=== PATIENT | male | born 1985 | race Caucasian/White ===

== ENCOUNTER 2016-09-20 20:45 | Inpatient (IN) | payer OTHER ==
[2016-09-20 21:35] VITALS: BMI 25.1
--- NOTE | 2016-09-20 21:35 | HP ---
CIWA Score - CIWA Score Nausea/Vomitin Muscle Tremors: 3 Anxiety: 3 Agitation: 3 Paroxysmal Sweats: 1-Minimal Palms Moist Orientation: 0-Oriented Tacttile Disturbances: 2-Mild Itch/Numbness/Burn Auditory Disturbances: 2-Mild Harshness/Frighten Visual Disturbances: 2-Mild Sensitivity Headache: 2-Mild CIWA-Ar Total Score: 21 Admission ROS BHS - HPI Chief Complaint: I NEED HELP TO STOP DRINKING ALCOHOL,XANAX Allergies/Adverse Reactions: Allergies Allergy/AdvReac Type Severity Reaction Status Date / Time No Known Allergies Allergy Verified 06/24/15 19:32 History of Present Illness: THIS 31 YEARS OLD MALE WITH ALCOHOL AND XANAX DEPENDENCE,WITHDRAWAL SYMPTOM, LAST DETOX TO 06/28/15 SYNCOPE ALCOHOL RELATED NICOTINE DEPENDENCE ANXIETY,DEPRESSION,INSOMNIA NO SIGNIFICANT PERIOD OF SOBRIETY DENIED HISTORY OF FALL Exam Limitations: No Limitations - Ebola screening Have you traveled outside of the country in the last 21 days: No (N) Have you had contact with anyone from an Ebola affected area: No Do you have a fever: No - Review of Systems Constitutional: Loss of Appetite, Malaise, Night Sweats, Changes in sleep, Weakness EENT: reports: Nose Congestion Respiratory: reports: No Symptoms reported Cardiac: reports: No Symptoms Reported GI: reports: Diarrhea, Nausea, Vomiting, Abdominal cramping : reports: No Symptoms Reported Musculoskeletal: reports: Muscle Pain Integumentary: reports: Dryness Neuro: reports: Tremors Endocrine: reports: No Symptoms Reported Hematology: reports: No Symptoms Reported Psychiatric: reports: Anxious, Depressed, other (INSOMNIA) Patient History - Patient Medical History Hx Anemia: No Hx Asthma: No Hx Chronic Obstructive Pulmonary Disease (COPD): No Hx Cancer: No Hx Cardiac Disorders: No Hx Congestive Heart Failure: No Hx Hypertension: Yes (ON MED) Hx Hypercholesterolemia: No Hx Pacemaker: No HX Cerebrovascular Accident: No Hx Seizures: No Hx Dementia: No Hx Diabetes: No Hx Gastrointestinal Disorders: No Hx Liver Disease: No Hx Genitourinary Disorders: No Hx Sexually Transmitted Disorders: No Hx Renal Disease (ESRD): No Hx Thyroid Disease: No Hx Human Immunodeficiency Virus (HIV): No (NEGATIVE 2016) Hx Hepatitis C: No Hx Depression: Yes (AND ANXIETY) Hx Suicide Attempt: No Hx Bipolar Disorder: No Hx Schizophrenia: No Other Medical History: NO SUICIDAL,NO HOMICIDAL - Patient Surgical History Past Surgical History: Yes Hx Neurologic Surgery: No Hx Cataract Extraction: No Hx Cardiac Surgery: No Hx Lung Surgery: No Hx Breast Surgery: No Hx Breast Biopsy: No Hx Abdominal Surgery: Yes (lN lower abdominal wall LIPOMA) Hx Appendectomy: No Hx Cholecystectomy: No Hx Genitourinary Surgery: No Hx Section: No Hx Orthopedic Surgery: No Hx Hysterectomy: No Other Surgical History: cyst removed last yr upper lip Anesthesia Reaction: No - PPD History Previous Implant?: Yes Documented Results: Negative w/o proof Date: 01/13/15 Results: 0 mm PPD to be Administered?: Yes - Smoking Cessation Smoking history: Current every day smoker Have you smoked in the past 12 months: Yes Aproximately how many cigarettes per day: 20 Cigars Per Day: 0 Hx Chewing Tobacco Use: No Initiated information on smoking cessation: Yes 'Breaking Loose' booklet given: 09/20/16 - Substance & Tx. History Hx Alcohol Use: Yes Hx Substance Use: Yes Substance Use Type: Alcohol, Tranquilizers Hx Substance Use Treatment: Yes ([facility] 06/24/15 TO 06/28/15) - Substances Abused Alcohol Route: Oral Frequency: 1-3 times last 30 days Amount used: 1PINT OF ODKA/3 OF 24 OZS OF BEER Age of first use: 14 Date of Last Use: 09/20/16 Benzodiazepine (Klonopin) Route: Oral Frequency: Daily Amount used: 4MGS Age of first use: 30 Date of Last Use: 09/20/16 Family Disease History - Family Disease History Family Disease History: Heart Disease: Father (HTN, CA. OF THE PROSTATE), Brother (HTN, ADDICTED TO DRUGS AND ETOH), CA: Father, Other: Grandparent ( alcohol,), Brother Admission Physical Exam BHS - Vital Signs Vital Signs: Vital Signs Temperature 96.9 F L 09/20/16 21:42 Pulse Rate 97 H 09/20/16 21:42 Respiratory Rate 20 09/20/16 21:42 Blood Pressure 152/88 09/20/16 21:42 O2 Sat by Pulse Oximetry (%) - Physical General Appearance: Yes: Intoxicated, Tremorous, Irritable, Sweating, Anxious HEENTM: Yes: Hearing grossly Normal, RADHIKA, Pharynx Normal Respiratory: Yes: Lungs Clear, No Respiratory Distress Neck: Yes: Supple, Trachea in good position Breast: Yes: Within Normal Limits Cardiology: Yes: Regular Rhythm, Regular Rate, S1, S2 Abdominal: Yes: Within Normal Limits, Normal Bowel Sounds, Non Tender, Soft Genitourinary: Yes: Within Normal Limits Back: Yes: Within Normal Limits, Normal Inspection Musculoskeletal: Yes: full range of Motion, Muscle Pain Extremities: Yes: Tremors 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, 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 Oriented, Alert, Motor Strength 5/5 Integumentary: Yes: Dry Lymphatic: Yes: Within Normal Limits - Diagnostic (1) Alcohol dependence with uncomplicated withdrawal Current Visit: No Status: Acute (2) Insomnia secondary to depression with anxiety Current Visit: No Status: Acute (3) Uncomplicated sedative, hypnotic or anxiolytic withdrawal Current Visit: Yes Status: Acute Cleared for Admission [facility] - Detox or Rehab [facility] Level of Care: Medically Managed Detox Regimen/Protocol: Librium S Breath Alcohol Content Breath Alcohol Content: 0.246 Vital Signs - Vital Signs Vital Signs Refused: No Temperature: 96.9 F Temperature Source: Oral Pulse Rate: 97 Respiratory Rate: 20 Blood Pressure: 152/88 BP Location: Left Arm - Height Height: 5 ft 9 in - Weight Weight: 170 lb Weight Measurement Method: Standing Scale Body Mass Index (BMI): 25.1 Urine Drug Screen - Test Device Lot Number: [id number] Expiration Date: 05/04/18 - Control Is Test Valid: Yes - Results Drug Screen Negative: No Urine Drug Screen Results: BZO-Benzodiazepines
[2016-09-20] MEDS ORDERED: MAGNESIUM CITRATE 300 ML BOTTLE PO PRN (21:52)
[2016-09-20] MEDS ORDERED: ACETAMINOPHEN 325 MG TABLET (FP) PO PRN (21:52)
[2016-09-20] MEDS ORDERED: chlordiazePOXIDE HCL 25 MG CAPSULE PO PRN (21:52)
[2016-09-20] MEDS ORDERED: guaiFENesin/D-METHORPHAN HB 10 ML UNIT-DOSE CUPS PO PRN (21:52)
[2016-09-20] MEDS ORDERED: hydrOXYzine PAMOATE 50 MG CAPSULE (FP) PO PRN (21:52)
[2016-09-20] MEDS ORDERED: MAGNESIUM HYDROX 2400MG/30ML ORAL SUSPENSION 30 ML CUP PO PRN (21:52)
[2016-09-20] MEDS ORDERED: LOPERAMIDE HCL 2 MG CAPSULE PO PRN (21:52)
[2016-09-20] MEDS ORDERED: P-EPHED 60MG/TRIPROLIDI 2.5MG TABLET PO PRN (21:52)
[2016-09-20] MEDS ORDERED: IBUPROFEN 400 MG TABLET (FP) PO PRN (21:52)
[2016-09-20] MEDS ORDERED: chlordiazePOXIDE HCL 25 MG CAPSULE PO ONE (21:52)
[2016-09-20] MEDS ORDERED: MENTHOL/PHENOL 1 EACH UD MM PRN (21:52)
[2016-09-20] MEDS ORDERED: MAG HYDROX/AL HYDROX/SIMETH 30 ML UNIT-DOSE CUP PO PRN (21:52)
[2016-09-20] MEDS ORDERED: THIAMINE HCL 100 MG TABLET (FP) PO SCH (22:00)
[2016-09-20] MEDS ORDERED: NICOTINE 21 MG/24 HOURS TOPICAL PATCH TD SCH (22:00)
[2016-09-20] MEDS ORDERED: LISINOPRIL 10 MG TABLET (FP) PO SCH (22:00)
[2016-09-20] MEDS ORDERED: chlordiazePOXIDE HCL 25 MG CAPSULE PO SCH (23:00)
[2016-09-20] MEDS: diphenhydrAMINE HCL 50 MG CAPSULE PO PRN (23:02)
[2016-09-20 23:19] VITALS: BP 152/80; PULSE 91; TEMP 98.1
[2016-09-21] MEDS: diphenhydrAMINE HCL 50 MG CAPSULE PO PRN (00:37)
--- NOTE | 2016-09-21 01:02 | PN ---
S Progress Note Note: called by nurse,patient did not want to complete treatment,signed release ama, did not want to wait
--- NOTE | 2016-09-21 01:08 | DS ---
[facility] Detox Discharge Summary Admission Date: 09/20/16 Discharge Date: 09/21/16 - History Present History: Alcohol Dependence, Sedative Dependence Additional Comments: patient did not want to complete treatment,signed release ama,did not want to wait Pertinent Past History: hypertension anxiety and depression nicotine dependence insomnia - Physical Exam Results Vital Signs: Vital Signs Temperature 98.1 F 09/20/16 23:18 Pulse Rate 91 H 09/20/16 23:18 Respiratory Rate 20 09/20/16 23:18 Blood Pressure 152/80 09/20/16 23:18 O2 Sat by Pulse Oximetry (%) Pertinent Admission Physical Exam Findings: withdrawal symptom - Medication Discharge Medications: Ambulatory Orders Quetiapine Fumarate [Seroquel -] 100 mg PO BID #60 tablet 05/06/15 Lisinopril [Prinivil] 10 mg PO DAILY #30 tablet 06/28/15 - Diagnosis (1) Alcohol dependence with uncomplicated withdrawal Current Visit: No Status: Acute (2) Insomnia secondary to depression with anxiety Current Visit: No Status: Acute (3) Uncomplicated sedative, hypnotic or anxiolytic withdrawal Current Visit: Yes Status: Acute (4) Nicotine dependence Current Visit: No Status: Chronic Qualifiers: Nicotine product type: cigarettes Substance use status: uncomplicated Qualified Code(s): F17.210 - Nicotine dependence, cigarettes, uncomplicated (5) Syncope Current Visit: No Status: Suspected (6) Essential hypertension Current Visit: Yes Status: Acute - AMA Did Patient Leave Against Medical Advice: Yes
[2016-09-21] MEDS ORDERED: PRENATAL VITAMINS W/ FOLIC ACID TABLET (FP) PO SCH (10:00)
--- NOTE | 2016-09-21 13:10 | EKG ---
Test Reason : Blood Pressure : / mmHG Vent. Rate : 081 BPM Atrial Rate : 081 BPM P-R Int : 182 ms QRS Dur : 086 ms QT Int : 372 ms P-R-T Axes : 071 055 056 degrees QTc Int : 432 ms NORMAL SINUS RHYTHM NORMAL ECG WHEN COMPARED WITH ECG OF 17-NOV-2013 23:58, NO SIGNIFICANT CHANGE WAS FOUND Confirmed by CAMMIE MCKEON MD ([id number]) on 09/21/2016 1:09:47 PM Referred By: Confirmed By:CAMMIE MCKEON MD
[2016-09-21] MEDS ORDERED: chlordiazePOXIDE HCL 25 MG CAPSULE PO SCH (23:00)
[2016-09-22] MEDS ORDERED: chlordiazePOXIDE 5 MG CAPSULE PO SCH (23:00)
[2016-09-23] MEDS ORDERED: chlordiazePOXIDE HCL 10 MG CAPSULE PO SCH (23:00)
== END 2016-09-21 01:09 | disposition left against medical advice (07) | DRG 894 ==
LOC: YASAS 20:45 → Y6N 21:27
PROVIDERS: ADMIT Internal Medicine Addiction Medicine; ATTEND Internal Medicine Addiction Medicine
PROC: HZ2ZZZZ Detoxification Services for Substance Abuse Treatment (ICD-10-PCS; principal; 2016-09-21)
DX: F13.230 Sedative, hypnotic or anxiolytic dependence with withdrawal, uncomplicated (principal); F10.230 Alcohol dependence with withdrawal, uncomplicated; F17.210 Nicotine dependence, cigarettes, uncomplicated; G47.00 Insomnia, unspecified; F41.8 Other specified anxiety disorders; I10 Essential (primary) hypertension; R55 Syncope and collapse
CPT/HCPCS: 93005; 93010

== ENCOUNTER 2018-06-26 17:53 | Inpatient (IN) | payer OTHER ==
[2018-06-26 19:13] VITALS: BMI 27.2
--- NOTE | 2018-06-26 21:04 | HP ---
"CIWA Score Nausea/Vomitin-Mild Nausea/No Vomiting Muscle Tremors: 3 Anxiety: 3 Agitation: 3 Paroxysmal Sweats: 2 Orientation: 2-Disoriented Date<2 days Tacttile Disturbances: 1-Very Mild Itch/Numbness Auditory Disturbances: 0-None Visual Disturbances: 0-None Headache: 0-None Present CIWA-Ar Total Score: 15 - Admission Criteria [facility] Guidelines: Admission for Medically Managed Detox: Requires at least one of the followin. CIWA greater than 12 2. Seizures within the past 24 hours 3. Delirium tremens within the past 24 hours 4. Hallucinations within the past 24 hours 5. Acute intervention needed for co occurring medical disorder 6. Acute intervention needed for co occurring psychiatric disorder 7. Severe withdrawal that cannot be handled at a lower level of care (continued vomiting, continued diarrhea, abnormal vital signs) requiring intravenous medication and/or fluids 8. Admission ROS [facility] Chief Complaint: Alcohol withdrawal symptoms Allergies/Adverse Reactions: Allergies Allergy/AdvReac Type Severity Reaction Status Date / Time No Known Allergies Allergy Verified 09/20/16 22:05 History of Present Illness: 33 years old male with a long history of alcohol dependence (since 14 years old ) is seeking admission to detox. Patient has been in previous detox at [facility] and reports insignificant period of sobriety. He reports that his last detox was here at [facility] 3 years ago. Patient has medical history of hypertension, depression, GERD and anxiety. He denies suicide attempt and suicidal ideation at this time. Patient urine was positive for Benzo but he denies use or prior treatment with Librium. Data Detail Level: Printer-Friendly View Confidential Drug Utilization Report Search Terms: vinny oliva, 1985 Search Date: 06/26/2018 08:57:15 PM The Drug Utilization Report below displays all of the controlled substance prescriptions, if any, that your patient has filled in the last twelve months. The information displayed on this report is compiled from pharmacy submissions to the Department, and accurately reflects the information as submitted by the pharmacies. This report was requested by: Krissy Hinton | Reference #: [id number] There are no results for the search terms that you entered. Exam Limitations: No Limitations - Ebola screening Have you traveled outside of the country in the last 21 days: No Have you had contact with anyone from an Ebola affected area: No Have you been sick,other than usual withdrawal symptoms: No Do you have a fever: No - Review of Systems Constitutional: Chills, Malaise, Night Sweats, Changes in sleep EENT: reports: No Symptoms Reported Respiratory: reports: No Symptoms reported Cardiac: reports: No Symptoms Reported GI: reports: Poor Appetite, Poor Fluid Intake, Abdominal cramping : reports: No Symptoms Reported Musculoskeletal: reports: Back Pain, Joint Pain, Muscle Pain Integumentary: reports: Dryness, Flushing Neuro: reports: Tremors Endocrine: reports: No Symptoms Reported Hematology: reports: No Symptoms Reported Psychiatric: reports: Mood/Affect Appropiate, Orientated x3 Other Systems: Reviewed and Negative Patient History - Patient Medical History Hx Anemia: No Hx Asthma: No Hx Chronic Obstructive Pulmonary Disease (COPD): No Hx Cancer: No Hx Cardiac Disorders: No Hx Congestive Heart Failure: No Hx Hypertension: Yes (Not on medication) Hx Hypercholesterolemia: No Hx Pacemaker: No HX Cerebrovascular Accident: No Hx Seizures: No Hx Dementia: No Hx Diabetes: No Hx Gastrointestinal Disorders: No Hx Liver Disease: No Hx Genitourinary Disorders: No Hx Sexually Transmitted Disorders: No Hx Renal Disease (ESRD): No Hx Thyroid Disease: No Hx Human Immunodeficiency Virus (HIV): No (NEGATIVE 2015) Hx Hepatitis C: No Hx Depression: Yes (Not on medication) Hx Suicide Attempt: No Hx Bipolar Disorder: No Hx Schizophrenia: No Other Medical History: Anxiety -Not on medication - Patient Surgical History Past Surgical History: Yes Hx Neurologic Surgery: No Hx Cataract Extraction: No Hx Cardiac Surgery: No Hx Lung Surgery: No Hx Breast Surgery: No Hx Breast Biopsy: No Hx Abdominal Surgery: Yes (lN lower abdominal wall LIPOMA) Hx Appendectomy: No Hx Cholecystectomy: No Hx Genitourinary Surgery: No Hx Section: No Hx Orthopedic Surgery: No Hx Hysterectomy: No Other Surgical History: cyst removed last yr upper lip Anesthesia Reaction: No - PPD History Previous Implant?: Yes Documented Results: Negative w/proof Implanted On Prior R Admission?: Yes Date: 09/22/16 Results: 0 mm PPD to be Administered?: Yes - Reproductive History Patient is a Female of Child Bearing Age (11 -55 yrs old): No (Male) - Smoking Cessation Smoking history: Current every day smoker Have you smoked in the past 12 months: Yes Aproximately how many cigarettes per day: 20 Cigars Per Day: 0 Hx Chewing Tobacco Use: No Initiated information on smoking cessation: Yes 'Breaking Loose' booklet given: 06/26/18 - Substance & Tx. History Hx Alcohol Use: Yes Hx Substance Use: No Substance Use Type: Alcohol Hx Substance Use Treatment: Yes ([facility]) - Substances Abused Alcohol Route: Oral Frequency: Daily Amount used: VODKA - 2 PINTS, BEER 10 x 12 oz. Age of first use: 14 Date of Last Use: 06/26/18 Family Disease History - Family Disease History Family Disease History: Heart Disease: Father (HTN, CA. OF THE PROSTATE), Brother (HTN, ADDICTED TO DRUGS AND ETOH), CA: Father, Other: Grandparent ( alcohol,), Brother Admission Physical Exam S - Vital Signs Vital Signs: Vital Signs - 24 hr 06/26/18 19:11 Temperature 98.6 F Pulse Rate 93 H Respiratory 18 Rate Blood Pressure 141/68 - Physical General Appearance: Yes: Moderate Distress, Tremorous, Irritable, Sweating, Anxious HEENTM: Yes: EOMI, Normal ENT Inspection, Normal Voice, RADHIKA Respiratory: Yes: Lungs Clear, Normal Breath Sounds, No Respiratory Distress Neck: Yes: Supple Breast: Yes: Breast Exam Deferred Cardiology: Yes: Tachycardia Abdominal: Yes: Normal Bowel Sounds, Soft Genitourinary: Yes: Within Normal Limits Back: Yes: Normal Inspection Musculoskeletal: Yes: Back pain, Muscle Pain Extremities: Yes: Tremors 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, 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, Normal Mood/Affect Integumentary: Yes: Warm Lymphatic: Yes: Within Normal Limits - Diagnostic (1) Anxiety Current Visit: Yes Status: Chronic (2) Alcohol dependence with uncomplicated withdrawal Current Visit: Yes Status: Chronic (3) Essential hypertension Current Visit: Yes Status: Chronic (4) Depression Current Visit: Yes Status: Chronic Qualifiers: Depression Type: unspecified Qualified Code(s): F32.9 - Major depressive disorder, single episode, unspecified (5) Gastroesophageal reflux disease Current Visit: Yes Status: Chronic (6) HTN (hypertension) Current Visit: Yes Status: Chronic Qualifiers: Hypertension type: essential hypertension Qualified Code(s): I10 - Essential (primary) hypertension (7) Nicotine dependence Current Visit: Yes Status: Chronic Qualifiers: Nicotine product type: cigarettes Substance use status: uncomplicated Qualified Code(s): F17.210 - Nicotine dependence, cigarettes, uncomplicated Cleared for Admission [facility] - Detox or Rehab [facility] Level of Care: Medically Managed Detox Regimen/Protocol: Librium [facility] Breath Alcohol Content Breath Alcohol Content: 0.222 Urine Drug Screen - Results Drug Screen Negative: No Urine Drug Screen Results: BZO-Benzodiazepines"
[2018-06-26] MEDS ORDERED: ACETAMINOPHEN 325 MG TABLET (FP) PO PRN (21:24)
[2018-06-26] MEDS ORDERED: LOPERAMIDE HCL 2 MG CAPSULE PO PRN (21:24)
[2018-06-26] MEDS ORDERED: MAGNESIUM CITRATE 300 ML BOTTLE PO PRN (21:24)
[2018-06-26] MEDS ORDERED: NICOTINE POLACRILEX 2 MG GUM BC PRN (21:24)
[2018-06-26] MEDS ORDERED: MAG HYDROX/AL HYDROX/SIMETH 30 ML UNIT-DOSE CUP PO PRN (21:24)
[2018-06-26] MEDS ORDERED: P-EPHED 60MG/TRIPROLIDI 2.5MG TABLET PO PRN (21:24)
[2018-06-26] MEDS ORDERED: IBUPROFEN 400 MG TABLET (FP) PO PRN (21:24)
[2018-06-26] MEDS ORDERED: guaiFENesin/D-METHORPHAN HB 10 ML UNIT-DOSE CUPS PO PRN (21:24)
[2018-06-26] MEDS ORDERED: chlordiazePOXIDE HCL 25 MG CAPSULE PO PRN (21:24)
[2018-06-26] MEDS ORDERED: MENTHOL/PHENOL 1 EACH UD MM PRN (21:24)
[2018-06-26] MEDS ORDERED: MAGNESIUM HYDROX 2400MG/30ML ORAL SUSPENSION 30 ML CUP PO PRN (21:24)
[2018-06-26] MEDS ORDERED: THIAMINE HCL 100 MG TABLET (FP) PO SCH (22:00)
[2018-06-26] MEDS ORDERED: MELATONIN 5 MG TABLETS PO PRN (22:00)
[2018-06-26] MEDS: chlordiazePOXIDE HCL 25 MG CAPSULE PO SCH (23:25)
[2018-06-27] MEDS: chlordiazePOXIDE HCL 25 MG CAPSULE PO SCH ×2 (06:10→10:50)
--- NOTE | 2018-06-27 08:58 | PN ---
[facility] Progress Note Note: pt states he has a good paying job and is afraid to lose it; pt states he is feeling better. Pt was told to stay to complete detox but he insisted he needs to leave before he loses his job. Pt was made aware of s/s of withdrawals and if he experiences any shakes/sweats/irritable/quite not himself he is to go to nearest ED or visit his PCP. Pt in agreement.
--- NOTE | 2018-06-27 09:10 | DS ---
[facility] Detox Discharge Summary Admission Date: 06/26/18 - History Present History: Alcohol Dependence - Physical Exam Results Vital Signs: Vital Signs Temperature 99 F 06/27/18 07:16 Pulse Rate 78 06/27/18 08:00 Respiratory Rate 18 06/27/18 07:16 Blood Pressure 138/62 06/27/18 07:16 O2 Sat by Pulse Oximetry (%) - Treatment Hospital Course: Discharged Condition Good - Medication Discharge Medications: Ambulatory Orders Quetiapine Fumarate [Seroquel -] 100 mg PO BID #60 tablet 05/06/15 Lisinopril [Prinivil] 10 mg PO DAILY #30 tablet 06/28/15 - Diagnosis (1) Alcohol dependence with uncomplicated withdrawal Current Visit: Yes Status: Chronic (2) Anxiety Current Visit: Yes Status: Chronic (3) Depression Current Visit: Yes Status: Chronic Qualifiers: Depression Type: unspecified Qualified Code(s): F32.9 - Major depressive disorder, single episode, unspecified (4) Essential hypertension Current Visit: Yes Status: Chronic (5) Gastroesophageal reflux disease Current Visit: Yes Status: Chronic Qualifiers: Esophagitis presence: without esophagitis Qualified Code(s): K21.9 - Gastro -esophageal reflux disease without esophagitis (6) HTN (hypertension) Current Visit: Yes Status: Chronic Qualifiers: Hypertension type: essential hypertension Qualified Code(s): I10 - Essential (primary) hypertension (7) Nicotine dependence Current Visit: Yes Status: Chronic Qualifiers: Nicotine product type: cigarettes Substance use status: uncomplicated Qualified Code(s): F17.210 - Nicotine dependence, cigarettes, uncomplicated (8) Alcohol-induced anxiety disorder Current Visit: No Status: Acute (9) Alcohol-induced sleep disorder Current Visit: No Status: Acute (10) Insomnia secondary to depression with anxiety Current Visit: No Status: Acute (11) Alcohol dependence Current Visit: No Status: Chronic (12) Anxiety and depression Current Visit: No Status: Chronic (13) Bipolar disorder Current Visit: No Status: Chronic Qualifiers: Current episode severity: unspecified (14) Cocaine dependence Current Visit: Yes Status: Chronic Qualifiers: Substance use status: uncomplicated Qualified Code(s): F14.20 - Cocaine dependence, uncomplicated (15) Drug-induced mood disorder Current Visit: No Status: Chronic (16) HTN (hypertension), benign Current Visit: No Status: Chronic (17) Opioid dependence Current Visit: No Status: Chronic (18) Syncope Current Visit: No Status: Suspected - AMA Did Patient Leave Against Medical Advice: Yes (going home)
[2018-06-27 09:21] VITALS: BP 138/78; TEMP 97.4
[2018-06-27] MEDS ORDERED: LISINOPRIL 10 MG TABLET (FP) PO SCH (10:00)
[2018-06-27] MEDS ORDERED: PRENATAL VITAMINS W/ FOLIC ACID TABLET (FP) PO SCH (10:00)
[2018-06-27] MEDS ORDERED: NICOTINE 21 MG/24 HOURS TOPICAL PATCH TD SCH (10:00)
[2018-06-27 10:32] LABS: HEMATOCRIT 43.2 % (35.4-49); HEMOGLOBIN 14.6 GM/dL (11.7-16.9); MCH 32.4 pg (25.7-33.7); MCHC 33.7 g/dl (32.0-35.9); MEAN PLT VOLUME 8.3 fl (7.5-11.1); PLATELET COUNT 214 K/MM3 (134-434); RBC 4.49 M/mm3 (4.00-5.60); RDW 13.2 % (11.9-15.9); WHITE BLOOD COUNT 5.6 K/mm3 (4.0-10.0)
[2018-06-27 10:46] VITALS: PULSE 62
[2018-06-27 10:47] LABS: ALBUMIN 3.7 g/dl (3.4-5.0); ALK PHOS 41 U/L (45-117); ANION GAP 9 MMOL/L (8-16); BILIRUBIN,TOTAL 0.5 mg/dL (0.2-1); BLOOD UREA NITROGEN 8 mg/dL (7-18); CALCIUM 8.4 mg/dL (8.5-10.1); CHLORIDE 109 mmol/L (98-107); CO2 28 mmol/L (21-32); CREATININE 0.8 mg/dL (0.55-1.3); GLUCOSE,RANDOM 87 mg/dL (74-106); POTASSIUM 4.2 mmol/L (3.5-5.1); SGOT/AST 29 U/L (15-37); SGPT/ALT 17 U/L (13-61); SODIUM 146 mmol/L (136-145); TOT PROT 6.3 g/dl (6.4-8.2)
[2018-06-27] MEDS ORDERED: chlordiazePOXIDE HCL 25 MG CAPSULE PO SCH (23:00)
[2018-06-28] MEDS ORDERED: chlordiazePOXIDE 5 MG CAPSULE PO SCH (23:00)
[2018-06-29] MEDS ORDERED: chlordiazePOXIDE HCL 10 MG CAPSULE PO SCH (23:00)
== END 2018-06-27 10:02 | disposition left against medical advice (07) | DRG 770 ==
LOC: YASAS 17:53 → Y6N 21:50
PROVIDERS: ADMIT Neuromusculoskeletal Medicine & OMM; ATTEND Neuromusculoskeletal Medicine & OMM
PROC: HZ2ZZZZ Detoxification Services for Substance Abuse Treatment (ICD-10-PCS; principal; 2018-06-26)
DX: F10.230 Alcohol dependence with withdrawal, uncomplicated (principal); F10.20 Alcohol dependence, uncomplicated; F14.20 Cocaine dependence, uncomplicated; F17.210 Nicotine dependence, cigarettes, uncomplicated; F31.9 Bipolar disorder, unspecified; F41.8 Other specified anxiety disorders; F32.9 Major depressive disorder, single episode, unspecified; F51.05 Insomnia due to other mental disorder; F10.24 Alcohol dependence with alcohol-induced mood disorder; F10.282 Alcohol dependence with alcohol-induced sleep disorder; F19.24 Other psychoactive substance dependence with psychoactive substance-induced mood disorder; I10 Essential (primary) hypertension; K21.9 Gastro-esophageal reflux disease without esophagitis
CPT/HCPCS: 36415; 80053; 85027; 86593

== ENCOUNTER 2019-06-28 20:19 | Inpatient (IN) | payer OTHER ==
[2019-06-28 20:39] VITALS: BMI 26.9
--- NOTE | 2019-06-28 21:58 | HP ---
CIWA Score Nausea/Vomitin-Mild Nausea/No Vomiting Muscle Tremors: 4-Moderate,w/Arms Extend Anxiety: 3 Agitation: 3 Paroxysmal Sweats: 3 (Increased facial moisture) Orientation: 1-Uncertain about Date Tacttile Disturbances: 0-None Auditory Disturbances: 0-None Visual Disturbances: 0-None Headache: 0-None Present CIWA-Ar Total Score: 15 - Admission Criteria OASAS Guidelines: Admission for Medically Managed Detox: Requires at least one of the followin. CIWA greater than 12 2. Seizures within the past 24 hours 3. Delirium tremens within the past 24 hours 4. Hallucinations within the past 24 hours 5. Acute intervention needed for co occurring medical disorder 6. Acute intervention needed for co occurring psychiatric disorder 7. Severe withdrawal that cannot be handled at a lower level of care (continued vomiting, continued diarrhea, abnormal vital signs) requiring intravenous medication and/or fluids 8. Patient presents the following: CIWA greater than 12 (ALEX: 0.261 down to 0.213) Admission Criteria Met: Admission criteria met Admitting History and Physical - Past Medical History Gastrointestinal: Yes: GERD Psych: Yes: Addictions, Anxiety, Depression - Smoking History Smoking history: Current every day smoker Have you smoked in the past 12 months: Yes Aproximately how many cigarettes per day: 20 - Alcohol/Substance Use Hx Alcohol Use: Yes Admission ROS BHS - HPI Chief Complaint: Here because I'm drinking way too much. I need to get back to work. Allergies/Adverse Reactions: Allergies Allergy/AdvReac Type Severity Reaction Status Date / Time No Known Allergies Allergy Verified 06/28/19 20:27 History of Present Illness: 34 yo presents with alcohol intoxication and withdrawal symptoms seeking detox. Hx: Frequent blackouts - last 2 days ago. Denies seizures or overdoses. Last [facility] tx - 1 year ago (06/27/18) Longest sobriety 11 months. (w/ AA support) Relapsed 1 month ago. ALEX: 0.261 down to 0.213 UTox: + BZO Alcohol use began at age 14. Currently drinking 2- 24 oz beers daily. last 2 days had 7 -24 oz beers and 5 shots liquor. Benzo - trying to detox self and took Klonopin - two 2 mg tabs 2 days ago. Nicotine use began at age 14. Smokes 1 1/2 PPD. PMH: HTN (Not on meds -used to be on Lisinopril); recent rx for pneumonia; MHHx: Anxiety. Insomnia. Depression. Denies thoughts of harming self or others. SHx: Domiciled. Employed. Denies current legal issues. Search Terms: Gabriel Zuniga, 1985 Search Date: 06/28/2019 09:54:51 PM The Drug Utilization Report below displays all of the controlled substance prescriptions, if any, that your patient has filled in the last twelve months. The information displayed on this report is compiled from pharmacy submissions to the Department, and accurately reflects the information as submitted by the pharmacies. This report was requested by: Marcia Edwards | Reference #: [id number] There are no results for the search terms that you entered. Exam Limitations: No Limitations - Ebola screening Have you traveled outside of the country in the last 21 days: No (N) Have you had contact with anyone from an Ebola affected area: No Have you been sick,other than usual withdrawal symptoms: Yes (Pneumonia 2 weeks ago. RX'd w/ Amox and Z pack) Do you have a fever: No - Review of Systems Constitutional: Diaphoresis, Changes in sleep (Difficulty falling and staying asleep), Weight Stable EENT: reports: Blurred Vision Respiratory: reports: No Symptoms reported Cardiac: reports: No Symptoms Reported GI: reports: Nausea, Vomiting (Yesterday) : reports: No Symptoms Reported Musculoskeletal: reports: Back Pain (Chronic low back achy pain. "7". Increases with changing position. Improves w/ exercise.) Integumentary: reports: No Symptoms Reported Neuro: reports: Tremors, Weakness Endocrine: reports: No Symptoms Reported Hematology: reports: No Symptoms Reported Psychiatric: reports: Judgement Intact, Mood/Affect Appropiate, Orientated x3 ( Unsure of exact date), Anxious, Depressed (Denies thoughts of harming self or others.) Patient History - Patient Medical History Hx Anemia: No Hx Asthma: No Hx Chronic Obstructive Pulmonary Disease (COPD): No Hx Cancer: No Hx Cardiac Disorders: No Hx Congestive Heart Failure: No Hx Hypertension: Yes (Not on medication) Hx Hypercholesterolemia: No Hx Pacemaker: No HX Cerebrovascular Accident: No Hx Seizures: No Hx Dementia: No Hx Diabetes: No Hx Gastrointestinal Disorders: No Hx Liver Disease: No Hx Genitourinary Disorders: No Hx Sexually Transmitted Disorders: No Hx Renal Disease (ESRD): No Hx Thyroid Disease: No Hx Human Immunodeficiency Virus (HIV): No (NEGATIVE 2016) Hx Hepatitis C: No Hx Depression: Yes (Not on medication) Hx Suicide Attempt: No Hx Bipolar Disorder: No Hx Schizophrenia: No - Patient Surgical History Past Surgical History: Yes Hx Neurologic Surgery: No Hx Cataract Extraction: No Hx Cardiac Surgery: No Hx Lung Surgery: No Hx Breast Surgery: No Hx Breast Biopsy: No Hx Abdominal Surgery: Yes (lN lower abdominal wall LIPOMA) Hx Appendectomy: No Hx Cholecystectomy: No Hx Genitourinary Surgery: No Hx Section: No Hx Orthopedic Surgery: No Hx Hysterectomy: No Other Surgical History: cyst removed last yr upper lip Anesthesia Reaction: No - PPD History Previous Implant?: Yes Documented Results: Negative w/proof Implanted On Prior R Admission?: Yes PPD to be Administered?: Yes - Smoking Cessation Smoking history: Current every day smoker Have you smoked in the past 12 months: Yes Aproximately how many cigarettes per day: 30 Cigars Per Day: 0 Hx Chewing Tobacco Use: No Initiated information on smoking cessation: Yes 'Breaking Loose' booklet given: 06/28/19 - Substance & Tx. History Hx Alcohol Use: Yes Hx Substance Use: Yes Substance Use Type: Alcohol Hx Substance Use Treatment: Yes (detox, rehab, AA) - Substances abused Alcohol Substance route: Oral Frequency: 1-2 times per week Amount used: 7 (24oz beers)/5 shots of vodka Age of first use: 13 Date of last use: 06/28/19 Admission Physical Exam BHS - Vital Signs Vital Signs: Vital Signs - 24 hr 06/28/19 06/28/19 20:32 21:14 Temperature 98.0 F 98.0 F Pulse Rate 110 H 110 H Respiratory 16 16 Rate Blood Pressure 161/93 161/93 - Physical General Appearance: Yes: Nourished, Mild Distress, Intoxicated (ALEX: 0.261) HEENTM: Yes: EOMI, Hearing grossly Normal, Normocephalic, Normal Voice, RADHIKA, Pharynx Normal, Other (THICKENED SALIVA) Respiratory: Yes: Lungs Clear (Pulse Ox = 97 %), Normal Breath Sounds, No Respiratory Distress, Other (Noisy, nopn-productive cough) Neck: Yes: No masses,lesions,Nodules, Supple Breast: Yes: Breast Exam Deferred Cardiology: Yes: Regular Rhythm, S1, S2, Tachycardia (HR: 108) Abdominal: Yes: Non Tender, Flat, Soft, Increased Bowel Sounds Genitourinary: Yes: Within Normal Limits Back: Yes: Normal Inspection Musculoskeletal: Yes: full range of Motion, Gait Steady Extremities: Yes: Normal Capillary Refill, Normal Range of Motion, Tremors Neurological: Yes: produce manager II-XII NML intact, Alert, Motor Strength 5/5, Normal Mood /Affect Integumentary: Yes: Normal Color, Warm, Moist (Increased facial moisture), Other (Decreased skin turgor) Lymphatic: Yes: Within Normal Limits - Diagnostic (1) Dehydration Current Visit: Yes Status: Acute (2) Alcohol dependence with uncomplicated withdrawal Current Visit: Yes Status: Acute Comment: w/ intoxication (3) HTN (hypertension) Current Visit: Yes Status: Chronic Qualifiers: Hypertension type: essential hypertension Qualified Code(s): I10 - Essential (primary) hypertension (4) Nicotine dependence Current Visit: Yes Status: Chronic Qualifiers: Nicotine product type: cigarettes Substance use status: uncomplicated Qualified Code(s): F17.210 - Nicotine dependence, cigarettes, uncomplicated Cleared for Admission S - Detox or Rehab [facility] Level of Care: Medically Managed Detox Regimen/Protocol: Librium Claeared for Rehab Admission: No Breathalyzer - Breathalyzer Breathalyzer: 0.261 Urine Drug Screen - Test Device Lot number: [id number] Expiration date: 01/02/21 - Control Is test valid?: Yes - Results Drug screen NEGATIVE: No Urine drug screen results: BZO-Benzodiazepines Inpatient Rehab Admission - Rehab Decision to Admit Inpatient rehab admission?: No
[2019-06-28] MEDS ORDERED: MENTHOL/PHENOL 1 EACH UD MM PRN (22:19)
[2019-06-28] MEDS ORDERED: IBUPROFEN 400 MG TABLET (FP) PO PRN (22:19)
[2019-06-28] MEDS ORDERED: ACETAMINOPHEN 325 MG TABLET (FP) PO PRN ×2 (22:19)
[2019-06-28] MEDS ORDERED: BISMUTH SUBSALICYLATE 524 MG/30 ML UD PO PRN (22:19)
[2019-06-28] MEDS ORDERED: MAGNESIUM CITRATE 300 ML BOTTLE PO PRN (22:19)
[2019-06-28] MEDS ORDERED: MAG HYDROX/AL HYDROX/SIMETH 30 ML UNIT-DOSE CUP PO PRN (22:19)
[2019-06-28] MEDS ORDERED: chlordiazePOXIDE HCL 25 MG CAPSULE PO PRN (22:19)
[2019-06-28] MEDS ORDERED: METHOCARBAMOL 500 MG TABLET PO PRN (22:19)
[2019-06-28] MEDS ORDERED: MAGNESIUM HYDROX 2400MG/30ML ORAL SUSPENSION 30 ML CUP PO PRN (22:19)
[2019-06-28] MEDS ORDERED: MELATONIN 5 MG TABLETS PO PRN (22:19)
[2019-06-28] MEDS: guaiFENesin 200 MG/10 ML 10 ML UNIT-DOSE CUPS PO SCH (23:43)
[2019-06-28] MEDS: chlordiazePOXIDE HCL 25 MG CAPSULE PO SCH (23:43)
[2019-06-28] MEDS: NICOTINE POLACRILEX 4 MG GUM BUC PRN (23:44)
[2019-06-29] MEDS: chlordiazePOXIDE HCL 25 MG CAPSULE PO SCH ×4 (05:29→22:24)
[2019-06-29] MEDS: guaiFENesin 200 MG/10 ML 10 ML UNIT-DOSE CUPS PO SCH ×4 (05:29→22:24)
[2019-06-29] MEDS ORDERED: LISINOPRIL 5 MG TABLET (FP) PO SCH (10:00)
[2019-06-29] MEDS ORDERED: NICOTINE 21 MG/24 HOURS TOPICAL PATCH TD SCH (10:00)
[2019-06-29] MEDS ORDERED: PRENATAL VITAMINS W/ FOLIC ACID TABLET (FP) PO SCH (10:00)
--- NOTE | 2019-06-29 10:37 | EKG ---
Test Reason : Blood Pressure : / mmHG Vent. Rate : 091 BPM Atrial Rate : 091 BPM P-R Int : 168 ms QRS Dur : 086 ms QT Int : 344 ms P-R-T Axes : 066 065 059 degrees QTc Int : 423 ms NORMAL SINUS RHYTHM NORMAL ECG WHEN COMPARED WITH ECG OF 20-SEP-2016 22:05, NO SIGNIFICANT CHANGE WAS FOUND Confirmed by MILADY LYN MD ([id number]) on 06/29/2019 10:36:32 AM Referred By: Haaj Peace Confirmed By:MILADY LYN MD
[2019-06-29] MEDS: NICOTINE POLACRILEX 4 MG GUM BUC PRN ×5 (10:48→22:27)
[2019-06-29 11:23] LABS: HEMATOCRIT 43.5 % (35.4-49); HEMOGLOBIN 14.7 GM/dL (11.7-16.9); MCH 31.6 pg (25.7-33.7); MCHC 33.8 g/dl (32.0-35.9); MEAN CELL VOLUME 93.7 fl (80-96); MEAN PLT VOLUME 7.8 fl (7.5-11.1); PLATELET COUNT 236 K/MM3 (134-434); RBC 4.64 M/mm3 (4.00-5.60); WHITE BLOOD COUNT 5.6 K/mm3 (4.0-10.0)
[2019-06-29 11:27] LABS: ALBUMIN 3.8 g/dl (3.4-5.0); BILIRUBIN,TOTAL 0.4 mg/dL (0.2-1); BLOOD UREA NITROGEN 10.2 mg/dL (7-18); CALCIUM 8.2 mg/dL (8.5-10.1); CREATININE 0.8 mg/dL (0.55-1.3); TOT PROT 6.5 g/dl (6.4-8.2)
--- NOTE | 2019-06-29 11:41 | PN ---
[facility] CIWA - CIWA Score Nausea/Vomitin-No Nausea/No Vomiting Muscle Tremors: 2 Anxiety: 3 Agitation: 1-Slight > Activity Paroxysmal Sweats: 3 Orientation: 0-Oriented Tacttile Disturbances: 0-None Auditory Disturbances: 0-None Visual Disturbances: 0-None Headache: 2-Mild CIWA-Ar Total Score: 11 S Progress Note (SOAP) Subjective: c/o shakes, anxiety, headache, and sweats. Objective: 06/29/19 11:40 Vital Signs 06/29/19 06/29/19 06:22 09:11 Temperature 97.8 F 97.1 F L Pulse Rate 64 67 Respiratory 18 16 Rate Blood Pressure 110/61 118/70 Laboratory Last Values WBC 5.6 K/mm3 (4.0-10.0) 06/29/19 08:20 RBC 4.64 M/mm3 (4.00-5.60) 06/29/19 08:20 Hgb 14.7 GM/dL (11.7-16.9) 06/29/19 08:20 Hct 43.5 % (35.4-49) 06/29/19 08:20 MCV 93.7 fl (80-96) 06/29/19 08:20 MCH 31.6 pg (25.7-33.7) 06/29/19 08:20 MCHC 33.8 g/dl (32.0-35.9) 06/29/19 08:20 RDW 14.0 % (11.9-15.9) 06/29/19 08:20 Plt Count 236 K/MM3 (134-434) 06/29/19 08:20 MPV 7.8 fl (7.5-11.1) 06/29/19 08:20 Sodium 141 mmol/L (136-145) 06/29/19 08:00 Potassium 4.0 mmol/L (3.5-5.1) 06/29/19 08:00 Chloride 107 mmol/L (98-107) 06/29/19 08:00 Carbon Dioxide 27 mmol/L (21-32) 06/29/19 08:00 Anion Gap 7 MMOL/L (8-16) L 06/29/19 08:00 BUN 10.2 mg/dL (7-18) 06/29/19 08:00 Creatinine 0.8 mg/dL (0.55-1.3) 06/29/19 08:00 Est GFR (CKD-EPI)AfAm 136.99 06/29/19 08:00 Est GFR (CKD-EPI)NonAf 118.20 06/29/19 08:00 Random Glucose 80 mg/dL (74-106) 06/29/19 08:00 Calcium 8.2 mg/dL (8.5-10.1) L 06/29/19 08:00 Total Bilirubin 0.4 mg/dL (0.2-1) 06/29/19 08:00 AST 46 U/L (15-37) H 06/29/19 08:00 ALT 29 U/L (13-61) 06/29/19 08:00 Alkaline Phosphatase 58 U/L (45-117) 06/29/19 08:00 Total Protein 6.5 g/dl (6.4-8.2) 06/29/19 08:00 Albumin 3.8 g/dl (3.4-5.0) 06/29/19 08:00 Labs noted. Assessment: 06/29/19 11:41 AOX3, in no acute respiratory distress. Full ROM, ambulating in the unit. Withdrawal symptoms. Plan: continue detox.
[2019-06-29] MEDS ORDERED: THIAMINE HCL 100 MG TABLET (FP) PO SCH (22:00)
[2019-06-29] MEDS ORDERED: QUEtiapine FUMARATE 50 MG TABLET PO SCH (22:00)
[2019-06-30] MEDS ORDERED: chlordiazePOXIDE HCL 25 MG CAPSULE PO SCH (05:00)
[2019-06-30] MEDS: guaiFENesin 200 MG/10 ML 10 ML UNIT-DOSE CUPS PO SCH (05:29)
[2019-06-30 06:43] VITALS: BP 106/70; PULSE 60; TEMP 97
--- NOTE | 2019-06-30 11:07 | DS ---
[facility] Detox Discharge Summary Admission Date: 06/28/19 Discharge Date: 06/30/19 - History Present History: Alcohol Dependence Additional Comments: 34 years old male admitted on 06/28/19 for alcohol with drawal sx management treated wtih li [facility] detox regimen patient is alert oriented x 3 speech clearly coherently ambulating steady gait encourage the patient to attend community support groups and meetings and attend [facility] as planed Pertinent Past History: patient insists to leave the detox unit without apparent reason patient is alert oriented x 3 speech clearly coherently steady gait case discussed with the nurse against medical advice is appropriated - Physical Exam Results Vital Signs: Vital Signs Temperature 97.0 F L 06/30/19 06:42 Pulse Rate 60 06/30/19 06:42 Respiratory Rate 18 06/30/19 06:42 Blood Pressure 106/70 06/30/19 06:42 O2 Sat by Pulse Oximetry (%) Pertinent Admission Physical Exam Findings: alcohol withdrawal Laboratory Last Values WBC 5.6 K/mm3 (4.0-10.0) 06/29/19 08:20 RBC 4.64 M/mm3 (4.00-5.60) 06/29/19 08:20 Hgb 14.7 GM/dL (11.7-16.9) 06/29/19 08:20 Hct 43.5 % (35.4-49) 06/29/19 08:20 MCV 93.7 fl (80-96) 06/29/19 08:20 MCH 31.6 pg (25.7-33.7) 06/29/19 08:20 MCHC 33.8 g/dl (32.0-35.9) 06/29/19 08:20 RDW 14.0 % (11.9-15.9) 06/29/19 08:20 Plt Count 236 K/MM3 (134-434) 06/29/19 08:20 MPV 7.8 fl (7.5-11.1) 06/29/19 08:20 Sodium 141 mmol/L (136-145) 06/29/19 08:00 Potassium 4.0 mmol/L (3.5-5.1) 06/29/19 08:00 Chloride 107 mmol/L (98-107) 06/29/19 08:00 Carbon Dioxide 27 mmol/L (21-32) 06/29/19 08:00 Anion Gap 7 MMOL/L (8-16) L 06/29/19 08:00 BUN 10.2 mg/dL (7-18) 06/29/19 08:00 Creatinine 0.8 mg/dL (0.55-1.3) 06/29/19 08:00 Est GFR (CKD-EPI)AfAm 136.99 06/29/19 08:00 Est GFR (CKD-EPI)NonAf 118.20 06/29/19 08:00 Random Glucose 80 mg/dL (74-106) 06/29/19 08:00 Calcium 8.2 mg/dL (8.5-10.1) L 06/29/19 08:00 Total Bilirubin 0.4 mg/dL (0.2-1) 06/29/19 08:00 AST 46 U/L (15-37) H 06/29/19 08:00 ALT 29 U/L (13-61) 06/29/19 08:00 Alkaline Phosphatase 58 U/L (45-117) 06/29/19 08:00 Total Protein 6.5 g/dl (6.4-8.2) 06/29/19 08:00 Albumin 3.8 g/dl (3.4-5.0) 06/29/19 08:00 RPR Titer Nonreactive (NONREACTIVE) 06/29/19 08:00 lab noted - Treatment Hospital Course: Detox Protocol Followed Patient has Accepted a Rehab Referral to: alicia sorensen - Medication Discharge Medications: Ambulatory Orders NK [No Known Home Medication] 06/28/19 - Diagnosis (1) Alcohol dependence with uncomplicated withdrawal Status: Acute (2) Gastroesophageal reflux disease Status: Chronic Qualifiers: Esophagitis presence: without esophagitis Qualified Code(s): K21.9 - Gastro -esophageal reflux disease without esophagitis (3) HTN (hypertension) Status: Chronic Qualifiers: Hypertension type: essential hypertension Qualified Code(s): I10 - Essential (primary) hypertension (4) HTN (hypertension), benign Status: Chronic (5) Nicotine dependence Status: Acute Qualifiers: Nicotine product type: cigarettes Substance use status: in withdrawal Qualified Code(s): F17.213 - Nicotine dependence, cigarettes, with withdrawal - AMA Did Patient Leave Against Medical Advice: Yes
[2019-07-01] MEDS ORDERED: chlordiazePOXIDE HCL 10 MG CAPSULE PO PRN
[2019-07-01] MEDS ORDERED: chlordiazePOXIDE HCL 10 MG CAPSULE PO SCH (05:00)
[2019-07-02] MEDS ORDERED: chlordiazePOXIDE HCL 10 MG CAPSULE PO SCH (05:00)
[2019-07-03] MEDS ORDERED: chlordiazePOXIDE HCL 10 MG CAPSULE PO ONE (05:00)
== END 2019-06-30 10:16 | disposition left against medical advice (07) | DRG 770 ==
LOC: YASAS 20:19 → Y3N 23:09
PROVIDERS: ADMIT Allergy & Immunology; ATTEND Allergy & Immunology
PROC: HZ2ZZZZ Detoxification Services for Substance Abuse Treatment (ICD-10-PCS; principal; 2019-06-28)
DX: F10.230 Alcohol dependence with withdrawal, uncomplicated (principal); F10.220 Alcohol dependence with intoxication, uncomplicated; F17.213 Nicotine dependence, cigarettes, with withdrawal; I10 Essential (primary) hypertension; K21.9 Gastro-esophageal reflux disease without esophagitis; R00.0 Tachycardia, unspecified; E86.0 Dehydration; Y90.8 Blood alcohol level of 240 mg/100 ml or more
CPT/HCPCS: 36415; 80053; 85027; 86593; 93005; 93010

== ENCOUNTER 2020-08-15 18:08 | Emergency (ER) | payer OTHER ==
[2020-08-15 18:24] VITALS: BP 130/81; PULSE 96; TEMP 97.9; BMI 27.3
[2020-08-15] MEDS ORDERED: ONDANSETRON 4 MG/2 ML VIAL IVPUSH ONE (19:14)
[2020-08-15] MEDS ORDERED: FAMOTIDINE 20 MG/50 ML IVPB 20 MG/50 ML MG IVPB ONE ×2 (19:14→19:30)
[2020-08-15] MEDS ORDERED: SODIUM CHLORIDE 0.9% 1000 ML INFUS.BAG IV ONE (19:14)
[2020-08-15] MEDS ORDERED: MAG HYDROX/AL HYDROX/SIMETH 30 ML UNIT-DOSE CUP PO ONE (19:14)
[2020-08-15 19:22] LABS: BASO % 0.8 % (0-2.0); HEMATOCRIT 45.1 % (35.4-49); HEMOGLOBIN 15.4 GM/dL (11.7-16.9); LYMPH % 42.5 % (8-40); MCH 32.3 pg (25.7-33.7); MCHC 34.1 g/dl (32.0-35.9); MEAN CELL VOLUME 94.8 fl (80-96); MEAN PLT VOLUME 7.8 fl (7.5-11.1); MONO % 6.9 % (3.8-10.2); NEUT % 48.8 % (42.8-82.8); PLATELET COUNT 239 K/MM3 (134-434); RBC 4.76 M/mm3 (4.00-5.60); WHITE BLOOD COUNT 6.9 K/mm3 (4.0-10.0)
[2020-08-15] MEDS ORDERED: MAG HYDROX/AL HYDROX/SIMETH 30 ML UNIT-DOSE CUP ONE (19:29)
[2020-08-15] MEDS ORDERED: ONDANSETRON 4 MG/2 ML VIAL ONE (19:29)
[2020-08-15 19:57] LABS: CHLORIDE 109 mmol/L (98-107); SODIUM 142 mmol/L (136-145)
[2020-08-15 19:59] LABS: ALBUMIN 4.1 g/dl (3.4-5.0); CALCIUM 8.2 mg/dL (8.5-10.1)
[2020-08-15 20:00] LABS: ANION GAP 8 MMOL/L (8-16); BLOOD UREA NITROGEN 7.7 mg/dL (7-18); CO2 26 mmol/L (21-32); GLUCOSE,RANDOM 123 mg/dL (74-106); LIPASE 407 U/L (73-393); MAGNESIUM 2.3 mg/dL (1.8-2.4)
[2020-08-15 20:02] LABS: SGPT/ALT 19 U/L (13-61)
[2020-08-15 20:03] LABS: CREATININE 0.8 mg/dL (0.55-1.3); SGOT/AST 27 U/L (15-37)
[2020-08-15 20:04] LABS: BILIRUBIN,TOTAL 0.2 mg/dL (0.2-1); TOT PROT 7.2 g/dl (6.4-8.2)
[2020-08-15 20:05] LABS: ALK PHOS 43 U/L (45-117)
== END 2020-08-15 22:04 | disposition home or self-care (01) ==
LOC: JER 18:08
PROC: 3E033GC Introduction of Other Therapeutic Substance into Peripheral Vein, Percutaneous Approach (ICD-10-PCS; principal; 2020-08-15)
PROC: 3E033GC Introduction of Other Therapeutic Substance into Peripheral Vein, Percutaneous Approach (ICD-10-PCS; 2020-08-15)
DX: R10.13 Epigastric pain (principal)
CPT/HCPCS: 36415; 71046-TC-FY; 80053; 82550; 82553; 83690; 83735; 84484; 85025; 93005; 93010; 99285-25; C9803; U0003

== ENCOUNTER 2020-08-17 11:23 | Inpatient (IN) | payer OTHER ==
[2020-08-17] MEDS ORDERED: ACETAMINOPHEN 325 MG TABLET (FP) PO PRN ×2 (12:24)
[2020-08-17] MEDS ORDERED: ONDANSETRON *ODT* 4 MG TABLET SL PRN (12:24)
[2020-08-17] MEDS ORDERED: BISMUTH SUBSALICYLATE 262 MG/15 ML BTL PO PRN (12:24)
[2020-08-17] MEDS ORDERED: MAG HYDROX/AL HYDROX/SIMETH 30 ML UNIT-DOSE CUP PO PRN (12:24)
[2020-08-17] MEDS ORDERED: MAGNESIUM CITRATE 300 ML BOTTLE PO PRN (12:24)
[2020-08-17] MEDS ORDERED: MENTHOL/PHENOL 1 EACH UD MM PRN (12:24)
[2020-08-17] MEDS ORDERED: IBUPROFEN 400 MG TABLET (FP) PO PRN (12:24)
[2020-08-17] MEDS ORDERED: MAGNESIUM HYDROX 2400MG/30ML ORAL SUSPENSION 30 ML CUP PO PRN (12:24)
[2020-08-17 12:29] VITALS: BMI 32.1
[2020-08-17] MEDS: PRENATAL VITAMINS W/ FOLIC ACID TABLET (FP) PO SCH (13:51)
[2020-08-17] MEDS: chlordiazePOXIDE HCL 25 MG CAPSULE PO SCH ×3 (13:51→22:01)
[2020-08-17] MEDS: NICOTINE 21 MG/24 HOURS TOPICAL PATCH TD SCH (13:51)
[2020-08-17] MEDS: hydrOXYzine PAMOATE 25 MG CAPSULE (FP) PO SCH ×4 (14:06→22:00)
[2020-08-17] MEDS: ALBUTEROL SO4 HFA INHALER IH PRN (15:04)
[2020-08-17] MEDS: chlordiazePOXIDE HCL 25 MG CAPSULE PO PRN (19:48)
[2020-08-17 19:51] LABS: POTASSIUM 4.1 mmol/L (3.5-5.1)
[2020-08-17 19:54] LABS: CALCIUM 8.9 mg/dL (8.5-10.1); HEMATOCRIT 48.9 % (35.4-49); HEMOGLOBIN 16.6 GM/dL (11.7-16.9); MCH 32.6 pg (25.7-33.7); MEAN CELL VOLUME 96.1 fl (80-96); MEAN PLT VOLUME 8.3 fl (7.5-11.1); PLATELET COUNT 300 K/MM3 (134-434); RBC 5.09 M/mm3 (4.00-5.60); RDW 13.2 % (11.9-15.9); WHITE BLOOD COUNT 10.8 K/mm3 (4.0-10.0)
[2020-08-17 19:55] LABS: ALBUMIN 4.6 g/dl (3.4-5.0); BLOOD UREA NITROGEN 6.6 mg/dL (7-18)
[2020-08-17 20:00] LABS: BILIRUBIN,TOTAL 0.4 mg/dL (0.2-1); TOT PROT 7.9 g/dl (6.4-8.2)
[2020-08-17 20:01] LABS: CREATININE 0.9 mg/dL (0.55-1.3)
[2020-08-17] MEDS: THIAMINE HCL 100 MG TABLET (FP) PO SCH (22:00)
[2020-08-17] MEDS: MELATONIN 5 MG TABLETS PO SCH (22:00)
[2020-08-18] MEDS: chlordiazePOXIDE HCL 25 MG CAPSULE PO PRN ×2 (01:56→14:55)
[2020-08-18] MEDS: METHOCARBAMOL 500 MG TABLET PO PRN (01:56)
[2020-08-18] MEDS: chlordiazePOXIDE HCL 25 MG CAPSULE PO SCH ×4 (05:43→21:59)
[2020-08-18] MEDS: hydrOXYzine PAMOATE 25 MG CAPSULE (FP) PO SCH ×2 (05:44→10:19)
[2020-08-18] MEDS: PRENATAL VITAMINS W/ FOLIC ACID TABLET (FP) PO SCH (10:19)
[2020-08-18] MEDS: NICOTINE 21 MG/24 HOURS TOPICAL PATCH TD SCH (10:19)
[2020-08-18] MEDS: busPIRone HCL 5 MG TABLET PO SCH ×2 (14:55→21:46)
[2020-08-18] MEDS: hydrOXYzine PAMOATE 25 MG CAPSULE (FP) PO PRN ×2 (16:42→21:46)
[2020-08-18] MEDS: NICOTINE POLACRILEX 2 MG GUM BUC PRN (16:43)
[2020-08-18] MEDS: THIAMINE HCL 100 MG TABLET (FP) PO SCH (21:46)
[2020-08-18] MEDS: QUEtiapine FUMARATE 50 MG TABLET PO SCH (21:46)
[2020-08-18] MEDS: MELATONIN 5 MG TABLETS PO SCH (21:46)
[2020-08-19] MEDS: busPIRone HCL 5 MG TABLET PO SCH ×3 (06:03→22:25)
[2020-08-19] MEDS: chlordiazePOXIDE HCL 25 MG CAPSULE PO SCH ×4 (06:03→22:27)
[2020-08-19] MEDS: chlordiazePOXIDE HCL 25 MG CAPSULE PO PRN ×3 (08:02→19:48)
[2020-08-19] MEDS: NICOTINE 21 MG/24 HOURS TOPICAL PATCH TD SCH (10:02)
[2020-08-19] MEDS: PRENATAL VITAMINS W/ FOLIC ACID TABLET (FP) PO SCH (10:02)
[2020-08-19] MEDS: NICOTINE POLACRILEX 2 MG GUM BUC PRN ×4 (10:05→22:29)
[2020-08-19 11:40] LABS: BASO % 0.5 % (0-2.0); EOS % 4.5 % (0-4.5); HEMATOCRIT 45.6 % (35.4-49); HEMOGLOBIN 15.3 GM/dL (11.7-16.9); LYMPH % 28.5 % (8-40); MCH 32.2 pg (25.7-33.7); MCHC 33.6 g/dl (32.0-35.9); MEAN CELL VOLUME 95.8 fl (80-96); MEAN PLT VOLUME 8.4 fl (7.5-11.1); NEUT % 55.5 % (42.8-82.8); PLATELET COUNT 212 K/MM3 (134-434); RBC 4.76 M/mm3 (4.00-5.60); RDW 12.8 % (11.9-15.9); WHITE BLOOD COUNT 5.6 K/mm3 (4.0-10.0)
[2020-08-19] MEDS: ALBUTEROL SO4 HFA INHALER IH PRN (17:05)
[2020-08-19] MEDS: hydrOXYzine PAMOATE 25 MG CAPSULE (FP) PO PRN ×2 (17:40→22:26)
[2020-08-19] MEDS: MELATONIN 5 MG TABLETS PO SCH (22:25)
[2020-08-19] MEDS: THIAMINE HCL 100 MG TABLET (FP) PO SCH (22:25)
[2020-08-19] MEDS: METHOCARBAMOL 500 MG TABLET PO PRN (22:26)
[2020-08-19] MEDS: QUEtiapine FUMARATE 50 MG TABLET PO SCH (22:26)
[2020-08-20] MEDS ORDERED: chlordiazePOXIDE HCL 10 MG CAPSULE PO PRN
[2020-08-20] MEDS: chlordiazePOXIDE HCL 10 MG CAPSULE PO SCH ×2 (05:59→10:17)
[2020-08-20] MEDS: busPIRone HCL 5 MG TABLET PO SCH ×2 (05:59→13:21)
[2020-08-20] MEDS: PRENATAL VITAMINS W/ FOLIC ACID TABLET (FP) PO SCH (10:18)
[2020-08-20] MEDS: NICOTINE 21 MG/24 HOURS TOPICAL PATCH TD SCH (10:18)
[2020-08-20 13:58] VITALS: BP 130/91; PULSE 99
[2020-08-20 14:22] VITALS: TEMP 97.8
[2020-08-21] MEDS ORDERED: chlordiazePOXIDE HCL 10 MG CAPSULE PO SCH (05:00)
[2020-08-22] MEDS ORDERED: chlordiazePOXIDE HCL 10 MG CAPSULE PO ONE (05:00)
== END 2020-08-20 18:00 | disposition home or self-care (01) | DRG 775 ==
LOC: YASAS 11:23 → Y3N 12:42
PROVIDERS: ADMIT Allergy & Immunology; ATTEND Allergy & Immunology
PROC: HZ2ZZZZ Detoxification Services for Substance Abuse Treatment (ICD-10-PCS; principal; 2020-08-17)
DX: F10.230 Alcohol dependence with withdrawal, uncomplicated (principal); F17.210 Nicotine dependence, cigarettes, uncomplicated; F10.282 Alcohol dependence with alcohol-induced sleep disorder; F51.05 Insomnia due to other mental disorder; E86.0 Dehydration; K21.9 Gastro-esophageal reflux disease without esophagitis
CPT/HCPCS: 36415; 80053; 82947; 85025; 85027; 86780; C9803; Q0162; U0003

== ENCOUNTER 2022-06-23 12:59 | Emergency (ER) | payer OTHER ==
[2022-06-23 13:45] VITALS: BMI 26.5
[2022-06-23] MEDS ORDERED: chlordiazePOXIDE HCL 25 MG CAPSULE PO ONE (14:13)
[2022-06-23] MEDS ORDERED: SODIUM CHLORIDE 0.9% 500 ML INFUS.BAG IV ONE (14:13)
[2022-06-23] MEDS ORDERED: chlordiazePOXIDE HCL 25 MG CAPSULE ONE (14:25)
[2022-06-23 15:32] VITALS: TEMP 98.1
[2022-06-23 17:57] VITALS: BP 134/87; PULSE 82; RESP 18
== END 2022-06-23 18:23 | disposition home or self-care (01) ==
LOC: JER 12:59
DX: R06.02 Shortness of breath (principal); R20.2 Paresthesia of skin; F10.230 Alcohol dependence with withdrawal, uncomplicated
CPT/HCPCS: 0241U-QW; 71046-TC-FY; 93005; 93010; 99285-25

== ENCOUNTER 2022-06-25 11:27 | Inpatient (IN) | payer OTHER ==
[2022-06-25 13:05] VITALS: BMI 25.5
[2022-06-25] MEDS ORDERED: IBUPROFEN 600 MG TABLET (FP) PO PRN (14:10)
[2022-06-25] MEDS ORDERED: LOPERAMIDE HCL 2 MG CAPSULE PO PRN (14:10)
[2022-06-25] MEDS ORDERED: MAGNESIUM HYDROX 2400MG/30ML ORAL SUSPENSION 30 ML CUP PO PRN (14:10)
[2022-06-25] MEDS ORDERED: BENZOCAINE/MENTHOL (CHLORASEPTIC ) LOZENGE MM PRN (14:10)
[2022-06-25] MEDS ORDERED: chlordiazePOXIDE HCL 25 MG CAPSULE PO ONE (14:10)
[2022-06-25] MEDS ORDERED: NALOXONE HCL (KLOXXADO) 8 MG SPRAY NS PRN (14:10)
[2022-06-25] MEDS ORDERED: ONDANSETRON *ODT* 4 MG TABLET SL PRN (14:10)
[2022-06-25] MEDS ORDERED: IBUPROFEN 400 MG TABLET (FP) PO PRN (14:10)
[2022-06-25] MEDS ORDERED: METHOCARBAMOL 500 MG TABLET PO PRN (14:10)
[2022-06-25] MEDS ORDERED: ACETAMINOPHEN 325 MG TABLET (FP) PO PRN ×2 (14:10)
[2022-06-25] MEDS ORDERED: BISMUTH SUBSALICYLATE 524 MG/30 ML PO PRN (14:10)
[2022-06-25] MEDS ORDERED: POLYETHYLENE GLYCOL (HEALTHYLAX) 3350 17 GM PACKET PO PRN (14:10)
[2022-06-25] MEDS ORDERED: MAG HYDROX/AL HYDROX/SIMETH 30 ML UNIT-DOSE CUP PO PRN (14:10)
[2022-06-25] MEDS ORDERED: DICYCLOMINE HCL 10 MG CAPSULE PO PRN (14:10)
[2022-06-25] MEDS ORDERED: chlordiazePOXIDE HCL 25 MG CAPSULE ONE (14:25)
[2022-06-25] MEDS: NICOTINE 21 MG/24 HOURS TOPICAL PATCH TD SCH (15:15)
[2022-06-25] MEDS ORDERED: NICOTINE 21 MG/24 HOURS TOPICAL PATCH ONE (15:20)
[2022-06-25] MEDS: hydrOXYzine PAMOATE 25 MG CAPSULE (FP) PO PRN (15:34)
[2022-06-25] MEDS: chlordiazePOXIDE HCL 25 MG CAPSULE PO SCH ×2 (17:39→22:21)
[2022-06-25] MEDS: chlordiazePOXIDE HCL 25 MG CAPSULE PO PRN (19:05)
[2022-06-25] MEDS: NICOTINE 10 MG CARTRIDGE (INHALER) IH PRN (19:15)
[2022-06-25] MEDS ORDERED: THIAMINE HCL 100 MG TABLET (FP) PO SCH (22:00)
[2022-06-25] MEDS ORDERED: MELATONIN 5 MG TABLETS PO SCH (22:00)
[2022-06-26] MEDS: chlordiazePOXIDE HCL 25 MG CAPSULE PO SCH ×2 (05:44→10:19)
[2022-06-26] MEDS ORDERED: LISINOPRIL 20 MG TABLET PO SCH (10:00)
[2022-06-26] MEDS ORDERED: amLODIPine BESYLATE 5 MG TABLET (FP) PO SCH (10:00)
[2022-06-26] MEDS ORDERED: PRENATAL VITAMINS W/ FOLIC ACID TABLET (FP) PO SCH (10:00)
[2022-06-26] MEDS: NICOTINE 10 MG CARTRIDGE (INHALER) IH PRN (10:22)
[2022-06-26] MEDS: NICOTINE 21 MG/24 HOURS TOPICAL PATCH TD SCH (10:22)
[2022-06-26 11:55] LABS: HEMATOCRIT 44.4 % (35.4-49); HEMOGLOBIN 14.7 GM/dL (11.7-16.9); MCH 31.7 pg (25.7-33.7); MCHC 33.2 g/dl (32.0-35.9); MEAN CELL VOLUME 95.3 fl (80-96); MEAN PLT VOLUME 8.3 fl (7.5-11.1); PLATELET COUNT 249 10^3/uL (134-434); RBC 4.66 M/mm3 (4.00-5.60); RDW 12.8 % (11.9-15.9); WHITE BLOOD COUNT 7.4 K/mm3 (4.0-10.0)
[2022-06-26 12:02] LABS: CALCIUM 8.7 mg/dL (8.5-10.1)
[2022-06-26 12:03] LABS: BLOOD UREA NITROGEN 12.6 mg/dL (7-18)
[2022-06-26 12:06] LABS: CREATININE 0.9 mg/dL (0.55-1.3)
[2022-06-26 12:08] LABS: BILIRUBIN,TOTAL 0.6 mg/dL (0.2-1); TOT PROT 6.7 g/dl (6.4-8.2)
[2022-06-26 13:23] VITALS: RESP 19
[2022-06-26] MEDS: chlordiazePOXIDE HCL 25 MG CAPSULE PO PRN (14:35)
[2022-06-26] MEDS: hydrOXYzine PAMOATE 25 MG CAPSULE (FP) PO PRN (14:35)
[2022-06-26] MEDS: propRANOLol HCL 10 MG TABLET PO SCH ×2 (17:37→17:38)
[2022-06-26 17:41] VITALS: BP 160/88; PULSE 65; TEMP 98.2
[2022-06-26] MEDS ORDERED: LACTULOSE 20 GM/30 ML UDC (FOR ORAL USE ONLY) PO SCH (18:00)
[2022-06-27] MEDS ORDERED: chlordiazePOXIDE HCL 25 MG CAPSULE PO SCH (05:00)
[2022-06-28] MEDS ORDERED: chlordiazePOXIDE HCL 10 MG CAPSULE PO PRN
[2022-06-28] MEDS ORDERED: chlordiazePOXIDE HCL 10 MG CAPSULE PO SCH (05:00)
[2022-06-29] MEDS ORDERED: chlordiazePOXIDE HCL 10 MG CAPSULE PO SCH (05:00)
[2022-06-30] MEDS ORDERED: chlordiazePOXIDE HCL 10 MG CAPSULE PO ONE (05:00)
== END 2022-06-26 17:50 | disposition left against medical advice (07) | DRG 894 ==
LOC: YASAS 11:27 → Y6N 14:28
PROVIDERS: ADMIT Allergy & Immunology; ATTEND Family Medicine
PROC: HZ2ZZZZ Detoxification Services for Substance Abuse Treatment (ICD-10-PCS; principal; 2022-06-25)
DX: F10.230 Alcohol dependence with withdrawal, uncomplicated (principal); F13.20 Sedative, hypnotic or anxiolytic dependence, uncomplicated; F19.282 Other psychoactive substance dependence with psychoactive substance-induced sleep disorder; F17.210 Nicotine dependence, cigarettes, uncomplicated; F41.9 Anxiety disorder, unspecified; I10 Essential (primary) hypertension; K21.9 Gastro-esophageal reflux disease without esophagitis; R79.89 Other specified abnormal findings of blood chemistry
CPT/HCPCS: 36415; 80053; 82140; 85027; 87811; C9803-CS; Q0162; U0003; U0005

== ENCOUNTER 2022-07-14 18:07 | Emergency (ER) | payer OTHER ==
[2022-07-14 18:11] VITALS: BP 148/84; TEMP 98.2; BMI 30.8
[2022-07-14] MEDS ORDERED: ALBUTEROL SO4 2.5/IPRATROPIUM 0.5 INH SOL 3 ML VIAL.NEB. NEB ONE ×2 (18:51→19:18)
[2022-07-14] MEDS ORDERED: LACTATED RINGERS SOLUTION 1000 ML INFUS.BAG IV ONE (18:52)
[2022-07-14] MEDS ORDERED: methylPREDNISolone NA SUCC 125 MG/2 ML VIAL IVPB ONE (18:52)
[2022-07-14] MEDS ORDERED: methylPREDNISolone NA SUCC 125 MG/2 ML VIAL ONE (19:19)
[2022-07-14 19:28] VITALS: PULSE 68; RESP 18
[2022-07-14 19:44] LABS: BASO % 0.7 % (0-2.0); EOS % 0.8 % (0-4.5); HEMATOCRIT 43.4 % (35.4-49); HEMOGLOBIN 14.7 GM/dL (11.7-16.9); MCH 32.5 pg (25.7-33.7); MEAN CELL VOLUME 95.9 fl (80-96); MEAN PLT VOLUME 7.8 fl (7.5-11.1); MONO % 8.1 % (3.8-10.2); NEUT % 49.4 % (42.8-82.8); PLATELET COUNT 315 10^3/uL (134-434); RBC 4.53 M/mm3 (4.00-5.60); RDW 12.9 % (11.9-15.9); WHITE BLOOD COUNT 7.2 K/mm3 (4.0-10.0)
[2022-07-14 20:16] LABS: CALCIUM 8.9 mg/dL (8.5-10.1)
[2022-07-14 20:17] LABS: BLOOD UREA NITROGEN 8.3 mg/dL (7-18)
[2022-07-14 20:20] LABS: CREATININE 0.8 mg/dL (0.55-1.3)
[2022-07-14 20:22] LABS: BILIRUBIN,TOTAL 0.2 mg/dL (0.2-1); TOT PROT 7.1 g/dl (6.4-8.2)
== END 2022-07-14 21:30 | disposition left against medical advice (07) ==
LOC: JER 18:07
PROC: 3E0F7GC Introduction of Other Therapeutic Substance into Respiratory Tract, Via Natural or Artificial Opening (ICD-10-PCS; principal; 2022-07-14)
PROC: 3E033GC Introduction of Other Therapeutic Substance into Peripheral Vein, Percutaneous Approach (ICD-10-PCS; 2022-07-14)
DX: R06.02 Shortness of breath (principal); F10.20 Alcohol dependence, uncomplicated; R09.02 Hypoxemia; F17.200 Nicotine dependence, unspecified, uncomplicated
CPT/HCPCS: 0241U-QW; 36415; 71045-TC-FY; 80053; 83735; 84484; 85025; 93005; 93010; 99285-25

== ENCOUNTER 2022-08-17 16:39 | Inpatient (IN) | payer OTHER ==
[2022-08-17 17:09] VITALS: BMI 24.3
[2022-08-17] MEDS ORDERED: DICYCLOMINE HCL 10 MG CAPSULE PO PRN (17:23)
[2022-08-17] MEDS ORDERED: BENZOCAINE/MENTHOL (CHLORASEPTIC ) LOZENGE MM PRN (17:23)
[2022-08-17] MEDS ORDERED: P-EPHED 60MG/TRIPROLIDI 2.5MG TABLET PO PRN (17:23)
[2022-08-17] MEDS ORDERED: IBUPROFEN 600 MG TABLET (FP) PO PRN (17:23)
[2022-08-17] MEDS ORDERED: POLYETHYLENE GLYCOL (HEALTHYLAX) 3350 17 GM PACKET PO PRN (17:23)
[2022-08-17] MEDS ORDERED: NICOTINE POLACRILEX 2 MG GUM BUC PRN (17:23)
[2022-08-17] MEDS ORDERED: METHOCARBAMOL 500 MG TABLET PO PRN (17:23)
[2022-08-17] MEDS ORDERED: ACETAMINOPHEN 325 MG TABLET (FP) PO PRN (17:23)
[2022-08-17] MEDS ORDERED: guaiFENesin 600 MG TABLET.ER (FP) PO PRN (17:23)
[2022-08-17] MEDS ORDERED: MELATONIN 5 MG TABLETS PO PRN (17:23)
[2022-08-17] MEDS ORDERED: ONDANSETRON *ODT* 4 MG TABLET SL PRN (17:23)
[2022-08-17] MEDS ORDERED: LOPERAMIDE HCL 2 MG CAPSULE PO PRN (17:23)
[2022-08-17] MEDS ORDERED: MAG HYDROX/AL HYDROX/SIMETH 30 ML UNIT-DOSE CUP PO PRN (17:23)
[2022-08-17] MEDS ORDERED: IBUPROFEN 400 MG TABLET (FP) PO PRN (17:23)
[2022-08-17] MEDS ORDERED: BENZONATATE 200 MG CAPSULE PO PRN (17:23)
[2022-08-17] MEDS ORDERED: BISMUTH SUBSALICYLATE 524 MG/30 ML PO PRN (17:23)
[2022-08-17] MEDS ORDERED: MAGNESIUM HYDROX 2400MG/30ML ORAL SUSPENSION 30 ML CUP PO PRN (17:23)
[2022-08-17] MEDS: chlordiazePOXIDE HCL 25 MG CAPSULE PO SCH ×2 (17:35→22:24)
[2022-08-17] MEDS: chlordiazePOXIDE HCL 25 MG CAPSULE PO PRN (19:15)
[2022-08-17] MEDS: NICOTINE 10 MG CARTRIDGE (INHALER) IH PRN (21:39)
[2022-08-17] MEDS ORDERED: THIAMINE HCL 100 MG TABLET (FP) PO SCH (22:00)
[2022-08-18] MEDS: chlordiazePOXIDE HCL 25 MG CAPSULE PO PRN (00:58)
[2022-08-18] MEDS: chlordiazePOXIDE HCL 25 MG CAPSULE PO SCH ×2 (05:40→10:14)
[2022-08-18] MEDS ORDERED: LISINOPRIL 20 MG TABLET PO SCH (10:00)
[2022-08-18] MEDS ORDERED: amLODIPine BESYLATE 5 MG TABLET (FP) PO SCH (10:00)
[2022-08-18] MEDS ORDERED: PRENATAL VITAMINS W/ FOLIC ACID TABLET (FP) PO SCH (10:00)
[2022-08-18] MEDS ORDERED: NICOTINE 14 MG/24 HOURS TOPICAL PATCH TD SCH (10:00)
[2022-08-18] MEDS: NICOTINE 10 MG CARTRIDGE (INHALER) IH PRN (10:16)
[2022-08-18 10:38] LABS: HEMATOCRIT 41.4 % (35.4-49); HEMOGLOBIN 13.9 GM/dL (11.7-16.9); MCH 31.4 pg (25.7-33.7); MCHC 33.6 g/dl (32.0-35.9); MEAN CELL VOLUME 93.4 fl (80-96); MEAN PLT VOLUME 7.9 fl (7.5-11.1); PLATELET COUNT 240 10^3/uL (134-434); RBC 4.43 M/mm3 (4.00-5.60); RDW 12.6 % (11.9-15.9); WHITE BLOOD COUNT 7.4 K/mm3 (4.0-10.0)
[2022-08-18 10:50] LABS: CREATININE 0.8 mg/dL (0.55-1.3)
[2022-08-18 10:52] LABS: BILIRUBIN,TOTAL 0.4 mg/dL (0.2-1); TOT PROT 6.4 g/dl (6.4-8.2)
[2022-08-18 10:53] LABS: BLOOD UREA NITROGEN 8.4 mg/dL (7-18); CALCIUM 8.5 mg/dL (8.5-10.1)
[2022-08-18 10:57] LABS: ALBUMIN 3.6 g/dl (3.4-5.0)
[2022-08-18 11:31] VITALS: BP 144/99; PULSE 80; RESP 16; TEMP 97.5
[2022-08-19] MEDS ORDERED: chlordiazePOXIDE HCL 25 MG CAPSULE PO SCH (05:00)
[2022-08-20] MEDS ORDERED: chlordiazePOXIDE HCL 10 MG CAPSULE PO PRN
[2022-08-20] MEDS ORDERED: chlordiazePOXIDE HCL 10 MG CAPSULE PO SCH (05:00)
[2022-08-21] MEDS ORDERED: chlordiazePOXIDE HCL 10 MG CAPSULE PO SCH (05:00)
[2022-08-22] MEDS ORDERED: chlordiazePOXIDE HCL 10 MG CAPSULE PO ONE (05:00)
== END 2022-08-18 12:53 | disposition home or self-care (01) | DRG 897 ==
LOC: YASAS 16:39 → Y3N 17:46
PROVIDERS: ADMIT Allergy & Immunology; ATTEND Surgery
PROC: HZ2ZZZZ Detoxification Services for Substance Abuse Treatment (ICD-10-PCS; principal; 2022-08-17)
DX: F10.230 Alcohol dependence with withdrawal, uncomplicated (principal); F14.20 Cocaine dependence, uncomplicated; F17.210 Nicotine dependence, cigarettes, uncomplicated; F41.1 Generalized anxiety disorder; I10 Essential (primary) hypertension; K21.9 Gastro-esophageal reflux disease without esophagitis; Z88.8 Allergy status to other drugs, medicaments and biological substances
CPT/HCPCS: 36415; 80053; 85027; 86780; C9803-CS; U0003; U0005

== ENCOUNTER 2022-09-01 20:41 | Emergency (ER) | payer OTHER ==
[2022-09-01 21:04] VITALS: RESP 16; BMI 24.3
[2022-09-01] MEDS ORDERED: ACETAMINOPHEN 1000 MG/100 ML BAG IVPB ONE (21:43)
[2022-09-01] MEDS ORDERED: SODIUM CHLORIDE 0.9% 500 ML INFUS.BAG IV ONE (21:43)
[2022-09-01] MEDS ORDERED: ONDANSETRON 4 MG/2 ML VIAL IVPUSH ONE (21:43)
[2022-09-01] MEDS ORDERED: ONDANSETRON 4 MG/2 ML VIAL ONE (22:00)
[2022-09-01] MEDS ORDERED: ACETAMINOPHEN INJECTION 100 ML IVPB ONE (22:00)
[2022-09-01 22:15] LABS: BASO % 0.6 % (0-2.0); EOS % 0.9 % (0-4.5); HEMATOCRIT 44.4 % (35.4-49); HEMOGLOBIN 15.4 GM/dL (11.7-16.9); LYMPH % 45.4 % (8-40); MCH 32.2 pg (25.7-33.7); MCHC 34.7 g/dl (32.0-35.9); MONO % 10.4 % (3.8-10.2); NEUT % 42.7 % (42.8-82.8); PLATELET COUNT 193 10^3/uL (134-434); RBC 4.78 M/mm3 (4.00-5.60)
[2022-09-01 22:36] LABS: ALBUMIN 3.6 g/dl (3.4-5.0); BLOOD UREA NITROGEN 13.3 mg/dL (7-18); CALCIUM 7.8 mg/dL (8.5-10.1)
[2022-09-01 22:39] LABS: CREATININE 0.9 mg/dL (0.55-1.3)
[2022-09-01 22:41] LABS: BILIRUBIN,TOTAL 0.7 mg/dL (0.2-1); TOT PROT 6.6 g/dl (6.4-8.2)
[2022-09-01] MEDS ORDERED: chlordiazePOXIDE HCL 25 MG CAPSULE PO ONE (23:10)
[2022-09-01] MEDS ORDERED: chlordiazePOXIDE HCL 25 MG CAPSULE ONE (23:11)
[2022-09-02] MEDS ORDERED: ONDANSETRON *ODT* 4 MG TABLET SL ONE (00:11)
[2022-09-02 00:13] VITALS: BP 139/94; PULSE 62; TEMP 98.1
[2022-09-02] MEDS ORDERED: ONDANSETRON *ODT* 4 MG TABLET ONE (00:21)
== END 2022-09-02 00:27 | disposition short-term general hospital (02) ==
LOC: JER 20:41
PROC: 3E0333Z Introduction of Anti-inflammatory into Peripheral Vein, Percutaneous Approach (ICD-10-PCS; principal; 2022-09-01)
PROC: 3E033GC Introduction of Other Therapeutic Substance into Peripheral Vein, Percutaneous Approach (ICD-10-PCS; 2022-09-01)
DX: F10.239 Alcohol dependence with withdrawal, unspecified (principal); R11.2 Nausea with vomiting, unspecified; Y90.9 Presence of alcohol in blood, level not specified
CPT/HCPCS: 36415; 80053; 83690; 85025; 93005; 93010; 99284-25; Q0162

== ENCOUNTER 2022-09-02 01:08 | Inpatient (IN) | payer OTHER ==
[2022-09-02 01:37] VITALS: BMI 24.0
[2022-09-02] MEDS ORDERED: NALOXONE HCL (KLOXXADO) 8 MG SPRAY NS PRN (02:01)
[2022-09-02] MEDS ORDERED: MAG HYDROX/AL HYDROX/SIMETH 30 ML UNIT-DOSE CUP PO PRN (02:01)
[2022-09-02] MEDS ORDERED: POLYETHYLENE GLYCOL (HEALTHYLAX) 3350 17 GM PACKET PO PRN (02:01)
[2022-09-02] MEDS ORDERED: NALOXONE HCL 0.4 MG/ML VIAL IM PRN (02:01)
[2022-09-02] MEDS ORDERED: DICYCLOMINE HCL 10 MG CAPSULE PO PRN (02:01)
[2022-09-02] MEDS ORDERED: MAGNESIUM HYDROX 2400MG/30ML ORAL SUSPENSION 30 ML CUP PO PRN (02:01)
[2022-09-02] MEDS ORDERED: METHOCARBAMOL 500 MG TABLET PO PRN (02:01)
[2022-09-02] MEDS ORDERED: IBUPROFEN 400 MG TABLET (FP) PO PRN (02:01)
[2022-09-02] MEDS ORDERED: guaiFENesin 600 MG TABLET.ER (FP) PO PRN (02:01)
[2022-09-02] MEDS ORDERED: BISMUTH SUBSALICYLATE 524 MG/30 ML PO PRN (02:01)
[2022-09-02] MEDS ORDERED: ACETAMINOPHEN 325 MG TABLET (FP) PO PRN (02:01)
[2022-09-02] MEDS ORDERED: BENZONATATE 200 MG CAPSULE PO PRN (02:01)
[2022-09-02] MEDS ORDERED: IBUPROFEN 600 MG TABLET (FP) PO PRN (02:01)
[2022-09-02] MEDS ORDERED: LOPERAMIDE HCL 2 MG CAPSULE PO PRN (02:01)
[2022-09-02] MEDS ORDERED: BENZOCAINE/MENTHOL (CHLORASEPTIC ) LOZENGE MM PRN (02:01)
[2022-09-02] MEDS: chlordiazePOXIDE HCL 25 MG CAPSULE PO PRN ×2 (02:46→14:44)
[2022-09-02] MEDS: ONDANSETRON *ODT* 4 MG TABLET SL PRN (02:49)
[2022-09-02] MEDS: chlordiazePOXIDE HCL 25 MG CAPSULE PO SCH ×4 (05:35→22:13)
[2022-09-02] MEDS: LISINOPRIL 20 MG TABLET PO SCH (10:29)
[2022-09-02] MEDS: PRENATAL VITAMINS W/ FOLIC ACID TABLET (FP) PO SCH (10:29)
[2022-09-02] MEDS: NICOTINE 10 MG CARTRIDGE (INHALER) IH PRN ×2 (10:31→22:15)
[2022-09-02] MEDS: MELATONIN 5 MG TABLETS PO SCH (22:13)
[2022-09-02] MEDS: THIAMINE HCL 100 MG TABLET (FP) PO SCH (22:13)
[2022-09-03] MEDS: chlordiazePOXIDE HCL 25 MG CAPSULE PO SCH ×2 (05:45→10:33)
[2022-09-03] MEDS: NICOTINE 10 MG CARTRIDGE (INHALER) IH PRN ×3 (05:47→22:15)
[2022-09-03 10:32] LABS: HEMATOCRIT 39.7 % (35.4-49); HEMOGLOBIN 13.7 GM/dL (11.7-16.9); MCH 32.2 pg (25.7-33.7); MCHC 34.6 g/dl (32.0-35.9); MEAN CELL VOLUME 93.1 fl (80-96); MEAN PLT VOLUME 8.2 fl (7.5-11.1); PLATELET COUNT 156 10^3/uL (134-434); RBC 4.26 M/mm3 (4.00-5.60); WHITE BLOOD COUNT 4.7 K/mm3 (4.0-10.0)
[2022-09-03] MEDS: PRENATAL VITAMINS W/ FOLIC ACID TABLET (FP) PO SCH (10:32)
[2022-09-03] MEDS: LISINOPRIL 20 MG TABLET PO SCH (10:33)
[2022-09-03] MEDS: amLODIPine BESYLATE 5 MG TABLET (FP) PO SCH (10:33)
[2022-09-03 10:35] LABS: CALCIUM 8.3 mg/dL (8.5-10.1)
[2022-09-03 10:36] LABS: ALBUMIN 3.2 g/dl (3.4-5.0); BLOOD UREA NITROGEN 12.9 mg/dL (7-18)
[2022-09-03] MEDS: ONDANSETRON *ODT* 4 MG TABLET SL PRN (10:37)
[2022-09-03 10:39] LABS: CREATININE 1.1 mg/dL (0.55-1.3)
[2022-09-03 10:40] LABS: BILIRUBIN,TOTAL 1.9 mg/dL (0.2-1)
[2022-09-03 10:41] LABS: TOT PROT 5.5 g/dl (6.4-8.2)
[2022-09-03] MEDS ORDERED: LORazepam 0.5 MG TABLET PO PRN (11:20)
[2022-09-03] MEDS: LACTULOSE 20 GM/30 ML UDC (FOR ORAL USE ONLY) PO SCH ×3 (14:00→22:13)
[2022-09-03] MEDS ORDERED: LORazepam 2 MG TABLET PO SCH (17:00)
[2022-09-03] MEDS ORDERED: LORazepam 1 MG TABLET PO SCH (17:11)
[2022-09-03] MEDS: LORazepam 1 MG TABLET PO SCH ×2 (17:40→22:13)
[2022-09-03] MEDS: MELATONIN 5 MG TABLETS PO SCH (22:13)
[2022-09-03] MEDS: THIAMINE HCL 100 MG TABLET (FP) PO SCH (22:13)
[2022-09-04] MEDS ORDERED: chlordiazePOXIDE HCL 10 MG CAPSULE PO PRN
[2022-09-04] MEDS ORDERED: chlordiazePOXIDE HCL 10 MG CAPSULE PO SCH (05:00)
[2022-09-04] MEDS: LORazepam 1 MG TABLET PO SCH ×4 (05:32→22:37)
[2022-09-04] MEDS: amLODIPine BESYLATE 5 MG TABLET (FP) PO SCH (10:21)
[2022-09-04] MEDS: LACTULOSE 20 GM/30 ML UDC (FOR ORAL USE ONLY) PO SCH ×4 (10:21→22:37)
[2022-09-04] MEDS: PRENATAL VITAMINS W/ FOLIC ACID TABLET (FP) PO SCH (10:21)
[2022-09-04] MEDS: NICOTINE 21 MG/24 HOURS TOPICAL PATCH TD SCH (10:21)
[2022-09-04] MEDS: LISINOPRIL 20 MG TABLET PO SCH (10:21)
[2022-09-04] MEDS: NICOTINE POLACRILEX 4 MG GUM BUC PRN (17:24)
[2022-09-04] MEDS: MELATONIN 5 MG TABLETS PO SCH (22:36)
[2022-09-04] MEDS: THIAMINE HCL 100 MG TABLET (FP) PO SCH (22:36)
[2022-09-05] MEDS ORDERED: chlordiazePOXIDE HCL 10 MG CAPSULE PO SCH (05:00)
[2022-09-05] MEDS: LORazepam 0.5 MG TABLET PO SCH ×4 (05:52→22:35)
[2022-09-05] MEDS: PRENATAL VITAMINS W/ FOLIC ACID TABLET (FP) PO SCH (10:16)
[2022-09-05] MEDS: amLODIPine BESYLATE 5 MG TABLET (FP) PO SCH (10:16)
[2022-09-05] MEDS: LISINOPRIL 20 MG TABLET PO SCH (10:18)
[2022-09-05] MEDS: NICOTINE 21 MG/24 HOURS TOPICAL PATCH TD SCH (10:18)
[2022-09-05] MEDS: LACTULOSE 20 GM/30 ML UDC (FOR ORAL USE ONLY) PO SCH ×4 (10:18→22:34)
[2022-09-05] MEDS: NICOTINE POLACRILEX 4 MG GUM BUC PRN (10:20)
[2022-09-05] MEDS: NICOTINE 10 MG CARTRIDGE (INHALER) IH PRN ×2 (13:55→22:37)
[2022-09-05] MEDS: ONDANSETRON *ODT* 4 MG TABLET SL PRN (17:40)
[2022-09-05] MEDS: THIAMINE HCL 100 MG TABLET (FP) PO SCH (22:34)
[2022-09-05] MEDS: MELATONIN 5 MG TABLETS PO SCH (22:34)
[2022-09-06] MEDS ORDERED: LORazepam 0.5 MG TABLET PO ONE (05:00)
[2022-09-06] MEDS ORDERED: chlordiazePOXIDE HCL 10 MG CAPSULE PO ONE (05:00)
[2022-09-06] MEDS: NICOTINE 10 MG CARTRIDGE (INHALER) IH PRN (05:38)
[2022-09-06 06:26] VITALS: BP 129/85; PULSE 67; RESP 16; TEMP 97.5
== END 2022-09-06 09:15 | disposition home or self-care (01) | DRG 897 ==
LOC: YASAS 01:08 → Y3N 02:19
PROVIDERS: ADMIT Allergy & Immunology; ATTEND Allergy & Immunology
PROC: HZ2ZZZZ Detoxification Services for Substance Abuse Treatment (ICD-10-PCS; principal; 2022-09-02)
DX: F10.230 Alcohol dependence with withdrawal, uncomplicated (principal); E72.20 Disorder of urea cycle metabolism, unspecified; F17.213 Nicotine dependence, cigarettes, with withdrawal; F19.24 Other psychoactive substance dependence with psychoactive substance-induced mood disorder; F32.A Depression, unspecified; F41.1 Generalized anxiety disorder; I10 Essential (primary) hypertension; K21.9 Gastro-esophageal reflux disease without esophagitis; R74.8 Abnormal levels of other serum enzymes; Z88.8 Allergy status to other drugs, medicaments and biological substances
CPT/HCPCS: 36415; 80053; 82140; 85027; 86780; C9803-CS; Q0162; U0003; U0005

== ENCOUNTER 2022-11-26 15:25 | Inpatient (IN) | payer OTHER ==
[2022-11-26 16:03] VITALS: BMI 26.7
[2022-11-26] MEDS ORDERED: BISMUTH SUBSALICYLATE 524 MG/30 ML PO PRN (16:44)
[2022-11-26] MEDS ORDERED: NALOXONE HCL (KLOXXADO) 8 MG SPRAY NS PRN (16:44)
[2022-11-26] MEDS ORDERED: POLYETHYLENE GLYCOL (HEALTHYLAX) 3350 17 GM PACKET PO PRN (16:44)
[2022-11-26] MEDS ORDERED: LORazepam 1 MG TABLET PO PRN (16:44)
[2022-11-26] MEDS ORDERED: LOPERAMIDE HCL 2 MG CAPSULE PO PRN (16:44)
[2022-11-26] MEDS ORDERED: IBUPROFEN 600 MG TABLET (FP) PO PRN (16:44)
[2022-11-26] MEDS ORDERED: ACETAMINOPHEN 325 MG TABLET (FP) PO PRN (16:44)
[2022-11-26] MEDS ORDERED: NICOTINE 10 MG CARTRIDGE (INHALER) IH PRN (16:44)
[2022-11-26] MEDS ORDERED: METHOCARBAMOL 500 MG TABLET PO PRN (16:44)
[2022-11-26] MEDS ORDERED: MAGNESIUM HYDROX 2400MG/30ML ORAL SUSPENSION 30 ML CUP PO PRN (16:44)
[2022-11-26] MEDS ORDERED: IBUPROFEN 400 MG TABLET (FP) PO PRN (16:44)
[2022-11-26] MEDS ORDERED: MAG HYDROX/AL HYDROX/SIMETH 30 ML UNIT-DOSE CUP PO PRN (16:44)
[2022-11-26] MEDS ORDERED: ONDANSETRON *ODT* 4 MG TABLET SL PRN (16:44)
[2022-11-26] MEDS ORDERED: NALOXONE HCL 0.4 MG/ML VIAL IM PRN (16:44)
[2022-11-26] MEDS ORDERED: BENZOCAINE/MENTHOL (CHLORASEPTIC ) LOZENGE MM PRN (16:44)
[2022-11-26] MEDS ORDERED: DICYCLOMINE HCL 10 MG CAPSULE PO PRN (16:44)
[2022-11-26] MEDS ORDERED: BENZONATATE 200 MG CAPSULE PO PRN (16:44)
[2022-11-26] MEDS ORDERED: hydrOXYzine PAMOATE 25 MG CAPSULE (FP) PO PRN (16:44)
[2022-11-26] MEDS ORDERED: guaiFENesin 600 MG TABLET.ER (FP) PO PRN (16:44)
[2022-11-26] MEDS ORDERED: LORazepam 2 MG TABLET ONE (16:59)
[2022-11-26] MEDS: LORazepam 2 MG TABLET PO SCH ×2 (17:01→22:20)
[2022-11-26] MEDS ORDERED: MELATONIN 5 MG TABLETS PO SCH (22:00)
[2022-11-26] MEDS ORDERED: THIAMINE HCL 100 MG TABLET (FP) PO SCH (22:00)
[2022-11-27] MEDS: LORazepam 2 MG TABLET PO SCH ×2 (05:49→10:10)
[2022-11-27 06:00] VITALS: RESP 18
[2022-11-27 09:09] VITALS: BP 134/79; PULSE 81; TEMP 96.9
[2022-11-27 09:15] LABS: HEMATOCRIT 44.3 % (35.4-49); HEMOGLOBIN 14.2 GM/dL (11.7-16.9); MCH 30.1 pg (25.7-33.7); MCHC 32.1 g/dl (32.0-35.9); MEAN CELL VOLUME 93.8 fl (80-96); MEAN PLT VOLUME 8.3 fl (7.5-11.1); PLATELET COUNT 248 10^3/uL (134-434); RBC 4.72 M/mm3 (4.00-5.60); RDW 12.8 % (11.9-15.9); WHITE BLOOD COUNT 8.2 K/mm3 (4.0-10.0)
[2022-11-27 09:18] LABS: POTASSIUM 4.6 mmol/L (3.5-5.1)
[2022-11-27 09:31] LABS: CALCIUM 9.1 mg/dL (8.5-10.1)
[2022-11-27 09:32] LABS: ALBUMIN 3.7 g/dl (3.4-5.0); BLOOD UREA NITROGEN 11.6 mg/dL (7-18)
[2022-11-27 09:35] LABS: CREATININE 0.9 mg/dL (0.55-1.3)
[2022-11-27 09:37] LABS: TOT PROT 6.2 g/dl (6.4-8.2)
[2022-11-27 09:39] LABS: BILIRUBIN,TOTAL 0.9 mg/dL (0.2-1)
[2022-11-27] MEDS ORDERED: amLODIPine BESYLATE 5 MG TABLET (FP) PO SCH (10:00)
[2022-11-27] MEDS ORDERED: PRENATAL VITAMINS W/ FOLIC ACID TABLET (FP) PO SCH (10:00)
[2022-11-27] MEDS ORDERED: NICOTINE 14 MG/24 HOURS TOPICAL PATCH TD SCH (10:00)
[2022-11-27] MEDS ORDERED: LISINOPRIL 20 MG TABLET PO SCH (10:00)
[2022-11-28] MEDS ORDERED: LORazepam 1 MG TABLET PO SCH (05:00)
[2022-11-29] MEDS ORDERED: LORazepam 0.5 MG TABLET PO PRN
[2022-11-29] MEDS ORDERED: LORazepam 0.5 MG TABLET PO SCH (05:00)
[2022-11-30] MEDS ORDERED: LORazepam 0.5 MG TABLET PO ONE (05:00)
== END 2022-11-27 12:01 | disposition left against medical advice (07) | DRG 894 ==
LOC: YASAS 15:25 → Y3N 16:54
PROVIDERS: ADMIT Allergy & Immunology; ATTEND Surgery
PROC: HZ2ZZZZ Detoxification Services for Substance Abuse Treatment (ICD-10-PCS; principal; 2022-11-26)
DX: F10.230 Alcohol dependence with withdrawal, uncomplicated (principal); F17.210 Nicotine dependence, cigarettes, uncomplicated; F41.9 Anxiety disorder, unspecified; F32.A Depression, unspecified; I10 Essential (primary) hypertension; K21.9 Gastro-esophageal reflux disease without esophagitis
CPT/HCPCS: 36415; 80053; 85027; 86780; 87635; 87811

== ENCOUNTER 2022-12-10 19:32 | Inpatient (IN) | payer OTHER ==
[2022-12-10 20:14] VITALS: BMI 26.9
[2022-12-10] MEDS ORDERED: POLYETHYLENE GLYCOL (HEALTHYLAX) 3350 17 GM PACKET PO PRN (22:52)
[2022-12-10] MEDS ORDERED: ACETAMINOPHEN 325 MG TABLET (FP) PO PRN (22:52)
[2022-12-10] MEDS ORDERED: LOPERAMIDE HCL 2 MG CAPSULE PO PRN (22:52)
[2022-12-10] MEDS ORDERED: BISMUTH SUBSALICYLATE 524 MG/30 ML PO PRN (22:52)
[2022-12-10] MEDS ORDERED: MAG HYDROX/AL HYDROX/SIMETH 30 ML UNIT-DOSE CUP PO PRN (22:52)
[2022-12-10] MEDS ORDERED: ONDANSETRON *ODT* 4 MG TABLET SL PRN (22:52)
[2022-12-10] MEDS ORDERED: BENZOCAINE/MENTHOL (CHLORASEPTIC ) LOZENGE MM PRN (22:52)
[2022-12-10] MEDS ORDERED: chlordiazePOXIDE HCL 25 MG CAPSULE PO PRN (22:52)
[2022-12-10] MEDS ORDERED: hydrOXYzine PAMOATE 25 MG CAPSULE (FP) PO PRN (22:52)
[2022-12-10] MEDS ORDERED: NALOXONE HCL 0.4 MG/ML VIAL IM PRN (22:52)
[2022-12-10] MEDS ORDERED: DICYCLOMINE HCL 10 MG CAPSULE PO PRN (22:52)
[2022-12-10] MEDS ORDERED: BENZONATATE 200 MG CAPSULE PO PRN (22:52)
[2022-12-10] MEDS ORDERED: METHOCARBAMOL 500 MG TABLET PO PRN (22:52)
[2022-12-10] MEDS ORDERED: guaiFENesin 600 MG TABLET.ER (FP) PO PRN (22:52)
[2022-12-10] MEDS ORDERED: MAGNESIUM HYDROX 2400MG/30ML ORAL SUSPENSION 30 ML CUP PO PRN (22:52)
[2022-12-10] MEDS ORDERED: IBUPROFEN 400 MG TABLET (FP) PO PRN (22:52)
[2022-12-10] MEDS ORDERED: IBUPROFEN 600 MG TABLET (FP) PO PRN (22:52)
[2022-12-10] MEDS ORDERED: NALOXONE HCL (KLOXXADO) 8 MG SPRAY NS PRN (22:52)
[2022-12-10] MEDS ORDERED: chlordiazePOXIDE HCL 25 MG CAPSULE ONE (23:16)
[2022-12-10] MEDS: chlordiazePOXIDE HCL 25 MG CAPSULE PO SCH (23:31)
[2022-12-11] MEDS: NICOTINE POLACRILEX 2 MG GUM BUC PRN ×2 (00:35→05:43)
[2022-12-11] MEDS: chlordiazePOXIDE HCL 25 MG CAPSULE PO SCH ×2 (05:42→10:20)
[2022-12-11] MEDS ORDERED: PRENATAL VITAMINS W/ FOLIC ACID TABLET (FP) PO SCH (10:00)
[2022-12-11] MEDS ORDERED: NICOTINE 21 MG/24 HOURS TOPICAL PATCH TD SCH (10:00)
[2022-12-11 13:10] LABS: POTASSIUM 4.5 mmol/L (3.5-5.1)
[2022-12-11 13:11] LABS: HEMATOCRIT 42.3 % (35.4-49); HEMOGLOBIN 14.3 GM/dL (11.7-16.9); MCH 31.1 pg (25.7-33.7); MCHC 33.8 g/dl (32.0-35.9); MEAN CELL VOLUME 91.9 fl (80-96); MEAN PLT VOLUME 7.7 fl (7.5-11.1); PLATELET COUNT 260 10^3/uL (134-434); RDW 13.4 % (11.9-15.9); WHITE BLOOD COUNT 5.8 K/mm3 (4.0-10.0)
[2022-12-11 13:14] VITALS: BP 140/89; PULSE 50; RESP 17; TEMP 97.5
[2022-12-11 13:16] LABS: CALCIUM 8.6 mg/dL (8.5-10.1)
[2022-12-11 13:17] LABS: ALBUMIN 3.6 g/dl (3.4-5.0); BLOOD UREA NITROGEN 9.1 mg/dL (7-18)
[2022-12-11 13:19] LABS: CREATININE 0.8 mg/dL (0.55-1.3)
[2022-12-11 13:21] LABS: BILIRUBIN,TOTAL 0.2 mg/dL (0.2-1); TOT PROT 6.1 g/dl (6.4-8.2)
[2022-12-11] MEDS ORDERED: THIAMINE HCL 100 MG TABLET (FP) PO SCH (22:00)
[2022-12-11] MEDS ORDERED: MELATONIN 5 MG TABLETS PO SCH (22:00)
[2022-12-12] MEDS ORDERED: chlordiazePOXIDE HCL 25 MG CAPSULE PO SCH (05:00)
[2022-12-12] MEDS ORDERED: LISINOPRIL 20 MG TABLET PO SCH ×2 (10:00)
[2022-12-12] MEDS ORDERED: amLODIPine BESYLATE 5 MG TABLET (FP) PO SCH (10:00)
[2022-12-13] MEDS ORDERED: chlordiazePOXIDE HCL 10 MG CAPSULE PO PRN
[2022-12-13] MEDS ORDERED: chlordiazePOXIDE HCL 10 MG CAPSULE PO SCH (05:00)
[2022-12-14] MEDS ORDERED: chlordiazePOXIDE HCL 10 MG CAPSULE PO SCH (05:00)
[2022-12-15] MEDS ORDERED: chlordiazePOXIDE HCL 10 MG CAPSULE PO ONE (05:00)
== END 2022-12-11 14:54 | disposition left against medical advice (07) | DRG 894 ==
LOC: YASAS 19:32 → Y6N 23:23
PROVIDERS: ADMIT Allergy & Immunology; ATTEND Surgery
PROC: HZ2ZZZZ Detoxification Services for Substance Abuse Treatment (ICD-10-PCS; principal; 2022-12-10)
DX: F10.230 Alcohol dependence with withdrawal, uncomplicated (principal); F14.20 Cocaine dependence, uncomplicated; F17.210 Nicotine dependence, cigarettes, uncomplicated; F10.282 Alcohol dependence with alcohol-induced sleep disorder; F41.9 Anxiety disorder, unspecified; K21.9 Gastro-esophageal reflux disease without esophagitis; I10 Essential (primary) hypertension; Z88.8 Allergy status to other drugs, medicaments and biological substances
CPT/HCPCS: 36415; 80053; 85027; 86780; 87635; Q0162

== ENCOUNTER 2023-01-28 12:45 | Emergency (ER) | payer OTHER ==
[2023-01-28 13:00] VITALS: BP 125/80; PULSE 86; RESP 20; TEMP 98.3; BMI 25.3
== END 2023-01-28 13:56 | disposition home or self-care (01) ==
LOC: JER 12:45
DX: F10.239 Alcohol dependence with withdrawal, unspecified (principal); R11.0 Nausea; R25.1 Tremor, unspecified; R61 Generalized hyperhidrosis; Y90.9 Presence of alcohol in blood, level not specified
CPT/HCPCS: 99282-25

== ENCOUNTER 2023-01-30 12:49 | Inpatient (IN) | payer OTHER ==
[2023-01-30 13:27] VITALS: BMI 25.0
[2023-01-30] MEDS ORDERED: BENZOCAINE/MENTHOL (CHLORASEPTIC ) LOZENGE MM PRN (14:04)
[2023-01-30] MEDS ORDERED: ACETAMINOPHEN 325 MG TABLET (FP) PO PRN (14:04)
[2023-01-30] MEDS ORDERED: hydrOXYzine PAMOATE 25 MG CAPSULE (FP) PO PRN (14:04)
[2023-01-30] MEDS ORDERED: BISMUTH SUBSALICYLATE 524 MG/30 ML PO PRN (14:04)
[2023-01-30] MEDS ORDERED: diazePAM 5 MG TABLET PO PRN (14:04)
[2023-01-30] MEDS ORDERED: ONDANSETRON *ODT* 4 MG TABLET SL PRN (14:04)
[2023-01-30] MEDS ORDERED: NALOXONE HCL 0.4 MG/ML VIAL IM PRN (14:04)
[2023-01-30] MEDS ORDERED: LOPERAMIDE HCL 2 MG CAPSULE PO PRN (14:04)
[2023-01-30] MEDS ORDERED: POLYETHYLENE GLYCOL (HEALTHYLAX) 3350 17 GM PACKET PO PRN (14:04)
[2023-01-30] MEDS ORDERED: NALOXONE HCL (KLOXXADO) 8 MG SPRAY NS PRN (14:04)
[2023-01-30] MEDS ORDERED: guaiFENesin 600 MG TABLET.ER (FP) PO PRN (14:04)
[2023-01-30] MEDS ORDERED: DICYCLOMINE HCL 10 MG CAPSULE PO PRN (14:04)
[2023-01-30] MEDS ORDERED: BENZONATATE 200 MG CAPSULE PO PRN (14:04)
[2023-01-30] MEDS ORDERED: MAG HYDROX/AL HYDROX/SIMETH 30 ML UNIT-DOSE CUP PO PRN (14:04)
[2023-01-30] MEDS ORDERED: IBUPROFEN 400 MG TABLET (FP) PO PRN (14:04)
[2023-01-30] MEDS ORDERED: MAGNESIUM HYDROX 2400MG/30ML ORAL SUSPENSION 30 ML CUP PO PRN (14:04)
[2023-01-30] MEDS ORDERED: METHOCARBAMOL 500 MG TABLET PO PRN (14:04)
[2023-01-30] MEDS ORDERED: IBUPROFEN 600 MG TABLET (FP) PO PRN (14:04)
[2023-01-30] MEDS: diazePAM 5 MG TABLET PO SCH ×2 (17:54→22:16)
[2023-01-30] MEDS: MELATONIN 5 MG TABLETS PO SCH (22:16)
[2023-01-30] MEDS: THIAMINE HCL 100 MG TABLET (FP) PO SCH (22:16)
[2023-01-30] MEDS: NICOTINE POLACRILEX 2 MG GUM BUC PRN (22:17)
[2023-01-31] MEDS: diazePAM 5 MG TABLET PO SCH ×4 (05:48→22:17)
[2023-01-31] MEDS: PRENATAL VITAMINS W/ FOLIC ACID TABLET (FP) PO SCH (10:26)
[2023-01-31] MEDS: NICOTINE POLACRILEX 2 MG GUM BUC PRN ×3 (10:27→17:33)
[2023-01-31 10:48] LABS: HEMATOCRIT 46.7 % (35.4-49); HEMOGLOBIN 15.6 GM/dL (11.7-16.9); MCH 31.3 pg (25.7-33.7); MCHC 33.5 g/dl (32.0-35.9); MEAN CELL VOLUME 93.3 fl (80-96); MEAN PLT VOLUME 8.7 fl (7.5-11.1); PLATELET COUNT 230 10^3/uL (134-434); RDW 12.9 % (11.9-15.9); WHITE BLOOD COUNT 6.3 K/mm3 (4.0-10.0)
[2023-01-31 10:58] LABS: POTASSIUM 4.8 mmol/L (3.5-5.1)
[2023-01-31 11:03] LABS: CALCIUM 8.4 mg/dL (8.5-10.1)
[2023-01-31 11:04] LABS: ALBUMIN 4.1 g/dl (3.4-5.0); BLOOD UREA NITROGEN 8.2 mg/dL (7-18)
[2023-01-31 11:07] LABS: CREATININE 0.9 mg/dL (0.55-1.3)
[2023-01-31 11:08] LABS: TOT PROT 7.1 g/dl (6.4-8.2)
[2023-01-31 11:09] LABS: BILIRUBIN,TOTAL 0.4 mg/dL (0.2-1)
[2023-01-31] MEDS: NICOTINE 21 MG/24 HOURS TOPICAL PATCH TD SCH (12:39)
[2023-01-31] MEDS: hydrOXYzine PAMOATE 50 MG CAPSULE (FP) PO PRN ×2 (12:40→22:17)
[2023-01-31] MEDS ORDERED: traZODone HCL 50 MG TABLET (FP) PO PRN (22:00)
[2023-01-31] MEDS: MELATONIN 5 MG TABLETS PO SCH (22:16)
[2023-01-31] MEDS: THIAMINE HCL 100 MG TABLET (FP) PO SCH (22:17)
[2023-02-01] MEDS: diazePAM 5 MG TABLET PO SCH ×2 (05:18→14:22)
[2023-02-01] MEDS: NICOTINE POLACRILEX 2 MG GUM BUC PRN ×2 (09:14→12:46)
[2023-02-01] MEDS ORDERED: amLODIPine BESYLATE 5 MG TABLET (FP) PO SCH (10:00)
[2023-02-01] MEDS ORDERED: LISINOPRIL 20 MG TABLET PO SCH (10:00)
[2023-02-01] MEDS ORDERED: propRANOLol HCL 10 MG TABLET PO SCH (10:00)
[2023-02-01] MEDS: PRENATAL VITAMINS W/ FOLIC ACID TABLET (FP) PO SCH (10:39)
[2023-02-01] MEDS: NICOTINE 21 MG/24 HOURS TOPICAL PATCH TD SCH (10:39)
[2023-02-01] MEDS: hydrOXYzine PAMOATE 50 MG CAPSULE (FP) PO PRN (10:42)
[2023-02-01 13:14] VITALS: BP 139/87; PULSE 64; RESP 16; TEMP 97.7
[2023-02-02] MEDS ORDERED: diazePAM 5 MG TABLET PO SCH (06:00)
[2023-02-03] MEDS ORDERED: diazePAM 5 MG TABLET PO ONE (06:00)
== END 2023-02-01 14:19 | disposition left against medical advice (07) | DRG 894 ==
LOC: YASAS 12:49 → Y3N 14:27
PROVIDERS: ADMIT Allergy & Immunology; ATTEND Surgery
PROC: HZ2ZZZZ Detoxification Services for Substance Abuse Treatment (ICD-10-PCS; principal; 2023-01-30)
DX: F10.230 Alcohol dependence with withdrawal, uncomplicated (principal); F14.20 Cocaine dependence, uncomplicated; F17.210 Nicotine dependence, cigarettes, uncomplicated; F10.280 Alcohol dependence with alcohol-induced anxiety disorder; F10.282 Alcohol dependence with alcohol-induced sleep disorder; F10.24 Alcohol dependence with alcohol-induced mood disorder; I10 Essential (primary) hypertension; K21.9 Gastro-esophageal reflux disease without esophagitis; Z88.8 Allergy status to other drugs, medicaments and biological substances
CPT/HCPCS: 36415; 80053; 85027; 86780; 87635; Q0162

== ENCOUNTER 2023-03-26 14:03 | Inpatient (IN) | payer OTHER ==
[2023-03-26 14:47] VITALS: BMI 25.5
[2023-03-26] MEDS ORDERED: ONDANSETRON *ODT* 4 MG TABLET SL PRN (16:57)
[2023-03-26] MEDS ORDERED: LOPERAMIDE HCL 2 MG CAPSULE PO PRN (16:57)
[2023-03-26] MEDS ORDERED: ACETAMINOPHEN 325 MG TABLET (FP) PO PRN (16:57)
[2023-03-26] MEDS ORDERED: NALOXONE HCL (KLOXXADO) 8 MG SPRAY NS PRN (16:57)
[2023-03-26] MEDS ORDERED: chlordiazePOXIDE HCL 25 MG CAPSULE PO PRN (16:57)
[2023-03-26] MEDS ORDERED: MAG HYDROX/AL HYDROX/SIMETH 30 ML UNIT-DOSE CUP PO PRN (16:57)
[2023-03-26] MEDS ORDERED: MAGNESIUM HYDROX 2400MG/30ML ORAL SUSPENSION 30 ML CUP PO PRN (16:57)
[2023-03-26] MEDS ORDERED: guaiFENesin 600 MG TABLET.ER (FP) PO PRN (16:57)
[2023-03-26] MEDS ORDERED: BENZOCAINE/MENTHOL (CHLORASEPTIC ) LOZENGE MM PRN (16:57)
[2023-03-26] MEDS ORDERED: NALOXONE HCL 0.4 MG/ML VIAL IM PRN (16:57)
[2023-03-26] MEDS ORDERED: IBUPROFEN 400 MG TABLET (FP) PO PRN (16:57)
[2023-03-26] MEDS ORDERED: IBUPROFEN 600 MG TABLET (FP) PO PRN (16:57)
[2023-03-26] MEDS ORDERED: POLYETHYLENE GLYCOL (HEALTHYLAX) 3350 17 GM PACKET PO PRN (16:57)
[2023-03-26] MEDS ORDERED: DICYCLOMINE HCL 10 MG CAPSULE PO PRN (16:57)
[2023-03-26] MEDS ORDERED: BENZONATATE 200 MG CAPSULE PO PRN (16:57)
[2023-03-26] MEDS ORDERED: BISMUTH SUBSALICYLATE 524 MG/30 ML PO PRN (16:57)
[2023-03-26] MEDS ORDERED: chlordiazePOXIDE HCL 25 MG CAPSULE ONE (17:12)
[2023-03-26] MEDS: chlordiazePOXIDE HCL 25 MG CAPSULE PO SCH ×2 (17:23→22:22)
[2023-03-26] MEDS: NICOTINE POLACRILEX 2 MG GUM BUC PRN (17:53)
[2023-03-26] MEDS: THIAMINE HCL 100 MG TABLET (FP) PO SCH (22:21)
[2023-03-26] MEDS: MELATONIN 5 MG TABLETS PO SCH (22:23)
[2023-03-27] MEDS: chlordiazePOXIDE HCL 25 MG CAPSULE PO SCH ×4 (05:26→22:12)
[2023-03-27] MEDS: PRENATAL VITAMINS W/ FOLIC ACID TABLET (FP) PO SCH (10:23)
[2023-03-27] MEDS: amLODIPine BESYLATE 5 MG TABLET (FP) PO SCH (10:24)
[2023-03-27] MEDS: NICOTINE 21 MG/24 HOURS TOPICAL PATCH TD SCH (10:24)
[2023-03-27] MEDS: hydrOXYzine PAMOATE 25 MG CAPSULE (FP) PO PRN (10:24)
[2023-03-27] MEDS: LISINOPRIL 20 MG TABLET PO SCH (10:24)
[2023-03-27] MEDS: METHOCARBAMOL 500 MG TABLET PO PRN (10:24)
[2023-03-27] MEDS: propRANOLol HCL 10 MG TABLET PO SCH (10:26)
[2023-03-27 11:37] LABS: CHLORIDE 102 mmol/L (98-107); POTASSIUM 4.5 mmol/L (3.5-5.1); SODIUM 135 mmol/L (136-145)
[2023-03-27 11:39] LABS: HEMATOCRIT 44.5 % (35.4-49); HEMOGLOBIN 15.2 GM/dL (11.7-16.9); MCH 31.7 pg (25.7-33.7); MCHC 34.1 g/dl (32.0-35.9); MEAN CELL VOLUME 93.1 fl (80-96); MEAN PLT VOLUME 8.2 fl (7.5-11.1); PLATELET COUNT 260 10^3/uL (134-434); RBC 4.78 M/mm3 (4.00-5.60); RDW 12.5 % (11.9-15.9); WHITE BLOOD COUNT 6.4 K/mm3 (4.0-10.0)
[2023-03-27 11:48] LABS: BLOOD UREA NITROGEN 14.3 mg/dL (7-18)
[2023-03-27 11:49] LABS: ALBUMIN 3.6 g/dl (3.4-5.0); ANION GAP 4 mmol/L (4-13); CALCIUM 8.5 mg/dL (8.5-10.1); CO2 29 mmol/L (21-32); GLUCOSE,RANDOM 93 mg/dL (74-106)
[2023-03-27 11:51] LABS: CREATININE 1.1 mg/dL (0.55-1.3)
[2023-03-27 11:53] LABS: BILIRUBIN,TOTAL 0.9 mg/dL (0.2-1); TOT PROT 6.3 g/dl (6.4-8.2)
[2023-03-27 11:54] LABS: ALK PHOS 68 U/L (45-117)
[2023-03-27 12:04] LABS: SGPT/ALT 434 U/L (13-61)
[2023-03-27 12:07] LABS: SGOT/AST 1199 U/L (15-37)
[2023-03-27] MEDS: NICOTINE POLACRILEX 2 MG GUM BUC PRN ×3 (15:09→22:14)
[2023-03-27] MEDS ORDERED: traZODone HCL 50 MG TABLET (FP) PO SCH (22:00)
[2023-03-27] MEDS: MELATONIN 5 MG TABLETS PO SCH (22:11)
[2023-03-27] MEDS: THIAMINE HCL 100 MG TABLET (FP) PO SCH (22:12)
[2023-03-28] MEDS ORDERED: chlordiazePOXIDE HCL 25 MG CAPSULE PO SCH (05:00)
[2023-03-28] MEDS ORDERED: LORazepam 1 MG TABLET PO PRN (08:46)
[2023-03-28] MEDS: amLODIPine BESYLATE 5 MG TABLET (FP) PO SCH (10:29)
[2023-03-28] MEDS: propRANOLol HCL 10 MG TABLET PO SCH (10:29)
[2023-03-28] MEDS: LISINOPRIL 20 MG TABLET PO SCH (10:29)
[2023-03-28] MEDS: hydrOXYzine PAMOATE 25 MG CAPSULE (FP) PO PRN (10:30)
[2023-03-28] MEDS: NICOTINE 21 MG/24 HOURS TOPICAL PATCH TD SCH (10:30)
[2023-03-28] MEDS: PRENATAL VITAMINS W/ FOLIC ACID TABLET (FP) PO SCH (10:30)
[2023-03-28] MEDS: METHOCARBAMOL 500 MG TABLET PO PRN (10:30)
[2023-03-28] MEDS: NICOTINE POLACRILEX 2 MG GUM BUC PRN (10:34)
[2023-03-28] MEDS ORDERED: LORazepam 2 MG TABLET PO SCH (11:00)
[2023-03-28 13:11] VITALS: BP 126/80; PULSE 74; RESP 14; TEMP 98.7
[2023-03-29] MEDS ORDERED: chlordiazePOXIDE HCL 10 MG CAPSULE PO PRN
[2023-03-29] MEDS ORDERED: chlordiazePOXIDE HCL 10 MG CAPSULE PO SCH (05:00)
[2023-03-29] MEDS ORDERED: LORazepam 1 MG TABLET PO SCH (05:00)
[2023-03-30] MEDS ORDERED: LORazepam 0.5 MG TABLET PO PRN
[2023-03-30] MEDS ORDERED: chlordiazePOXIDE HCL 10 MG CAPSULE PO SCH (05:00)
[2023-03-30] MEDS ORDERED: LORazepam 0.5 MG TABLET PO SCH (05:00)
[2023-03-31] MEDS ORDERED: chlordiazePOXIDE HCL 10 MG CAPSULE PO ONE (05:00)
[2023-03-31] MEDS ORDERED: LORazepam 0.5 MG TABLET PO ONE (05:00)
== END 2023-03-28 15:35 | disposition left against medical advice (07) | DRG 894 ==
LOC: SUATTDRO 14:03 → YASAS 14:03 → Y6N 17:24
PROVIDERS: ADMIT Allergy & Immunology; ATTEND Surgery
PROC: HZ2ZZZZ Detoxification Services for Substance Abuse Treatment (ICD-10-PCS; principal; 2023-03-26)
DX: F10.230 Alcohol dependence with withdrawal, uncomplicated (principal); F14.20 Cocaine dependence, uncomplicated; F17.210 Nicotine dependence, cigarettes, uncomplicated; F41.8 Other specified anxiety disorders; F10.280 Alcohol dependence with alcohol-induced anxiety disorder; F10.282 Alcohol dependence with alcohol-induced sleep disorder; F10.24 Alcohol dependence with alcohol-induced mood disorder; I10 Essential (primary) hypertension; K21.9 Gastro-esophageal reflux disease without esophagitis; G47.00 Insomnia, unspecified; M54.50 Low back pain, unspecified; G89.29 Other chronic pain; R74.01 Elevation of levels of liver transaminase levels; Z88.8 Allergy status to other drugs, medicaments and biological substances
CPT/HCPCS: 36415; 80053; 80307; 85027; 86780; 87635; Q0162

== ENCOUNTER 2023-12-26 22:30 | Inpatient (IN) | payer OTHER ==
[2023-12-26 23:00] VITALS: BMI 27.1
[2023-12-26] MEDS ORDERED: IBUPROFEN 400 MG TABLET (FP) PO PRN (23:42)
[2023-12-26] MEDS ORDERED: MAGNESIUM HYDROX 2400MG/30ML ORAL SUSPENSION 30 ML CUP PO PRN (23:42)
[2023-12-26] MEDS ORDERED: POLYETHYLENE GLYCOL (HEALTHYLAX) 3350 17 GM PACKET PO PRN (23:42)
[2023-12-26] MEDS ORDERED: NALOXONE HCL 0.4 MG/ML VIAL IM PRN (23:42)
[2023-12-26] MEDS ORDERED: DICYCLOMINE HCL 10 MG CAPSULE PO PRN (23:42)
[2023-12-26] MEDS ORDERED: BENZOCAINE/MENTHOL (CHLORASEPTIC ) LOZENGE MM PRN (23:42)
[2023-12-26] MEDS ORDERED: LOPERAMIDE HCL 2 MG CAPSULE PO PRN (23:42)
[2023-12-26] MEDS ORDERED: BISMUTH SUBSALICYLATE 524 MG/30 ML PO PRN (23:42)
[2023-12-26] MEDS ORDERED: ACETAMINOPHEN 325 MG TABLET (FP) PO PRN (23:42)
[2023-12-26] MEDS ORDERED: guaiFENesin 600 MG TABLET.ER (FP) PO PRN (23:42)
[2023-12-26] MEDS ORDERED: hydrOXYzine PAMOATE 25 MG CAPSULE (FP) PO PRN (23:42)
[2023-12-26] MEDS ORDERED: BENZONATATE 200 MG CAPSULE PO PRN (23:42)
[2023-12-26] MEDS ORDERED: METHOCARBAMOL 500 MG TABLET PO PRN (23:42)
[2023-12-26] MEDS ORDERED: NALOXONE (NARCAN) HCL 4 MG/0.1 ML SPRAY NS PRN (23:42)
[2023-12-26] MEDS ORDERED: MAG HYDROX/AL HYDROX/SIMETH 30 ML UNIT-DOSE CUP PO PRN (23:42)
[2023-12-26] MEDS ORDERED: IBUPROFEN 600 MG TABLET (FP) PO PRN (23:42)
[2023-12-27] MEDS: ONDANSETRON *ODT* 4 MG TABLET SL PRN (01:29)
[2023-12-27] MEDS ORDERED: LORazepam 1 MG TABLET PO PRN (09:24)
[2023-12-27] MEDS: LORazepam 2 MG TABLET PO SCH (10:19)
[2023-12-27] MEDS: PRENATAL VITAMINS W/ FOLIC ACID TABLET (FP) PO SCH (10:19)
[2023-12-27] MEDS: NICOTINE 21 MG/24 HOURS TOPICAL PATCH TD SCH (10:30)
[2023-12-27] MEDS: NICOTINE POLACRILEX 4 MG GUM BUC PRN (10:31)
[2023-12-27 12:03] LABS: HEMATOCRIT 46.7 % (35.4-49); HEMOGLOBIN 15.7 GM/dL (11.7-16.9); MCH 31.2 pg (25.7-33.7); MCHC 33.7 g/dl (32.0-35.9); MEAN CELL VOLUME 92.7 fl (80-96); MEAN PLT VOLUME 8.2 fl (7.5-11.1); PLATELET COUNT 359 10^3/uL (134-434); RBC 5.04 M/mm3 (4.00-5.60); RDW 15.1 % (11.9-15.9); WHITE BLOOD COUNT 9.6 K/mm3 (4.0-10.0)
[2023-12-27 12:56] LABS: CHLORIDE 102 mmol/L (98-107); POTASSIUM 5.9 mmol/L (3.5-5.1); SODIUM 136 mmol/L (136-145)
[2023-12-27 12:59] LABS: ALBUMIN 3.6 g/dl (3.4-5.0); ANION GAP 6 mmol/L (4-13); CO2 28 mmol/L (21-32)
[2023-12-27 13:00] LABS: BLOOD UREA NITROGEN 8.7 mg/dL (7-18); GLUCOSE,RANDOM 99 mg/dL (74-106)
[2023-12-27 13:02] LABS: SGPT/ALT 48 U/L (13-61)
[2023-12-27 13:03] LABS: CREATININE 1.1 mg/dL (0.55-1.3); SGOT/AST 101 U/L (15-37)
[2023-12-27 13:04] LABS: BILIRUBIN,TOTAL 0.5 mg/dL (0.2-1); TOT PROT 6.7 g/dl (6.4-8.2)
[2023-12-27 13:05] LABS: ALK PHOS 54 U/L (45-117)
[2023-12-27 14:06] VITALS: RESP 16
[2023-12-27] MEDS: MELATONIN 5 MG TABLETS PO SCH (22:42)
[2023-12-27] MEDS: THIAMINE 100 MG TABLET PO SCH (22:42)
[2023-12-28] MEDS: LORazepam 1 MG TABLET PO SCH (05:31)
[2023-12-28 06:09] VITALS: TEMP 97.7
[2023-12-28 09:32] VITALS: BP 123/76; PULSE 64
[2023-12-28] MEDS: amLODIPine BESYLATE 5 MG TABLET (FP) PO SCH (11:18)
[2023-12-28] MEDS: LISINOPRIL 20 MG TABLET PO SCH (11:18)
[2023-12-28] MEDS: propRANOLol HCL 10 MG TABLET PO SCH (11:18)
[2023-12-29] MEDS ORDERED: LORazepam 0.5 MG TABLET PO PRN
[2023-12-29] MEDS ORDERED: LORazepam 0.5 MG TABLET PO SCH (05:00)
[2023-12-30] MEDS ORDERED: LORazepam 0.5 MG TABLET PO ONE (05:00)
== END 2023-12-28 11:45 | disposition left against medical advice (07) | DRG 770 ==
LOC: YASAS 22:30 → Y6N 12-27 01:22
PROVIDERS: ADMIT Allergy & Immunology; ATTEND Surgery
PROC: HZ2ZZZZ Detoxification Services for Substance Abuse Treatment (ICD-10-PCS; principal; 2023-12-27)
DX: F10.230 Alcohol dependence with withdrawal, uncomplicated (principal); F14.20 Cocaine dependence, uncomplicated; F17.210 Nicotine dependence, cigarettes, uncomplicated; F10.280 Alcohol dependence with alcohol-induced anxiety disorder; F10.282 Alcohol dependence with alcohol-induced sleep disorder; F41.9 Anxiety disorder, unspecified; F32.A Depression, unspecified; I10 Essential (primary) hypertension; K21.9 Gastro-esophageal reflux disease without esophagitis; Z87.19 Personal history of other diseases of the digestive system; Z88.8 Allergy status to other drugs, medicaments and biological substances
CPT/HCPCS: 36415; 80053; 80305; 80307; 85027; 86780; 93005; 93010; Q0162